=== PATIENT | female | born 1980 | race Two or more races ===

== ENCOUNTER 2023-06-16 11:08 | Observation (INO) | payer SELFPAY ==
--- NOTE | ~2023-06-16 | CT_ITS ---
EXAMINATION: CT head/brain wo IV con CLINICAL INFORMATION: Reason for Exam persistent nausea /vomiting -? central etiology COMPARISON: None. TECHNIQUE: Contiguous axial imaging was performed from the skull base to vertex without intravenous contrast. Sagittal and coronal reformatted images were obtained. This CT examination was performed using dose optimization techniques as appropriate, variously including the following: * Automated exposure control * Adjustment of mA and/or kV according to patient size (this includes techniques or standardized protocols for targeted exams where dose is matched to indication/reason for exam; i.e. extremities or head) Use of iterative reconstruction technique DLP: 565.78 mGy-cm FINDINGS: No acute osseous or soft tissue abnormality. The mastoid air cells and visualized portions of the paranasal sinuses are well aerated. There is no evidence of acute intracranial hemorrhage or territorial infarction. No abnormal mass effect or midline shift is seen. Andrade to white matter differentiation is well preserved. No extra-axial fluid collections are identified. No hydrocephalus. No significant volume loss. There is no abnormal attenuation within the brain parenchyma. CT/CT head/brain wo IV con IMPRESSION: No acute intracranial abnormality including hemorrhage, mass effect, hydrocephalus, or acute territorial edematous infarction.
--- NOTE | ~2023-06-16 | CT_ITS ---
EXAMINATION: CT ABDOMEN AND PELVIS WITH CONTRAST CLINICAL INFORMATION: Upper abdominal pain COMPARISON: None available. TECHNIQUE: Multidetector volumetric images were obtained from the superior aspect of the liver through the pubic symphysis following administration 85 mL of Omnipaque 350 intravenous contrast. Sagittal and coronal reformatted images were obtained on the technologist's workstation. Oral contrast: Yes This CT examination was performed using dose optimization techniques as appropriate, variously including the following: *Automated exposure control *Adjustment of mA and/or kV according to patient size (this includes techniques or standardized protocols for targeted exams where dose is matched to indication/reason for exam; i.e. extremities or head) *Use of iterative reconstruction technique DLP: 329 mGy-cm FINDINGS: LUNG BASES: The visualized lung bases are unremarkable. LIVER, GALLBLADDER, AND BILIARY TREE: The liver is normal in size, shape, and attenuation. No focal hepatic lesion or biliary ductal dilatation is present. The gallbladder is unremarkable with no evidence of radiopaque gallstones, gallbladder wall thickening, or obvious pericholecystic inflammatory changes. PANCREAS: There are calcifications in the head of the pancreas suggestive of changes from chronic pancreatitis. The main pancreatic duct is dilated measuring up to 7 mm in the head of the pancreas. The peripancreatic fat is normal. SPLEEN: Unremarkable. ADRENAL GLANDS: Unremarkable. KIDNEYS AND URETERS: Small nonobstructing stone in the upper pole of the right kidney. Kidneys are otherwise normal. BLADDER: Unremarkable. GASTROINTESTINAL TRACT: There is question of mild wall thickening of the transverse, left and sigmoid colon colon versus changes due to underdistention. The small and large bowel are otherwise unremarkable. The appendix is not seen. No inflammatory changes are seen in the right lower quadrant. ABDOMINAL WALL: No significant hernia is appreciated. LYMPH NODES: Normal. VASCULAR: Unremarkable. PELVIC VISCERA: Unremarkable. OSSEOUS STRUCTURES: Unremarkable. CT/CT abdomen pelvis w IV con IMPRESSION: Changes of chronic pancreatitis with calcifications in the head of the pancreas dilatation of the main pancreatic duct. No evidence of acute pancreatitis. Small nonobstructing right renal stone. Apparent wall thickening of the transverse, left and sigmoid colon.. This may be due to underdistention. It is difficult to exclude mild colitis. Fleischner guidelines were followed.
--- NOTE | ~2023-06-16 | CT_ITS ---
EXAMINATION: CT ABDOMEN AND PELVIS WITH CONTRAST CLINICAL INFORMATION: Question acute peripancreatic fluid collection COMPARISON: None available. TECHNIQUE: Multidetector volumetric images were obtained from the superior aspect of the liver through the pubic symphysis following administration 85 mL of Omnipaque 350 intravenous contrast. Sagittal and coronal reformatted images were obtained on the technologist's workstation. Oral contrast: No This CT examination was performed using dose optimization techniques as appropriate, variously including the following: *Automated exposure control *Adjustment of mA and/or kV according to patient size (this includes techniques or standardized protocols for targeted exams where dose is matched to indication/reason for exam; i.e. extremities or head) *Use of iterative reconstruction technique DLP: 353 mGy-cm FINDINGS: LUNG BASES: There is bibasilar atelectasis. LIVER, GALLBLADDER, AND BILIARY TREE: The liver is normal in size, shape, and attenuation. No focal hepatic lesion or biliary ductal dilatation is present. The gallbladder is unremarkable with no evidence of radiopaque gallstones, gallbladder wall thickening, or obvious pericholecystic inflammatory changes. PANCREAS: There are several small calcifications seen in the head of the pancreas largest measuring 6 mm on axial slice 22/2. There is dilatation of pancreatic duct likely partially obstructed from this calculi. The CBD is nondilated and normal caliber. No peripancreatic fluid collection seen. SPLEEN: Unremarkable. ADRENAL GLANDS: Unremarkable. KIDNEYS AND URETERS: The kidneys are normal in size, shape, and attenuation. No hydronephrosis, hydroureter, or calculi seen. No perinephric stranding. BLADDER: Unremarkable. GASTROINTESTINAL TRACT: The small and large bowel are unremarkable. The appendix is unremarkable. ABDOMINAL WALL: There is punctate gas in the left abdominal wall likely from subcutaneous is injection. LYMPH NODES: Normal. VASCULAR: Unremarkable. PELVIC VISCERA: The uterus is retroverted with slightly enlarged fundus but no focal lesion is seen. There is a left ovarian 3.0 cm simple cyst. OSSEOUS STRUCTURES: No aggressive lytic or sclerotic process seen CT/CT abdomen pelvis w IV con IMPRESSION: 1. No acute intra-abdominal process seen. 2. There are several small calcifications in the head of the pancreas with dilatation of pancreatic duct likely partially obstructed from this calculi. No peripancreatic fluid collection seen. After an outpatient MRCP. 3. Retroverted uterus with slightly enlarged fundus but no focal lesion seen. 4. Left ovarian 3.0 cm cyst. Fleischner guidelines were followed.
[2023-06-16 11:19] VITALS: BP 154/77; PULSE 70; RESP 16; TEMP 36.8; O2SAT 99; BMI 20.9
--- NOTE | 2023-06-16 11:19 | ED.GENADULT ---
HPI - General Adult General Chief complaint: Abdominal Pain Stated complaint: abd pain Time Seen by Provider: 06/16/23 12:14 Source: patient Mode of arrival: ambulatory Limitations: no limitations History of Present Illness HPI narrative: This is a 42-year-old female history of pancreatitis, alcohol abuse disorder, presenting to the emergency department for evaluation of epigastric/upper abdominal pain going on since last night, with associated nausea, vomiting and diarrhea. Patient reports this feels like her typical episode of pancreatitis. No known sick contacts. Patient reports subjective chills. Denies fevers, chest pain, shortness of breath, headache, vision changes, dizziness, weakness, urinary symptoms, changes in bowel habits. No history of obstructions. Patient reports last time this happened she was admitted to [facility]. Patient reports she was sober for a few years and recently relapsed she drinks about a pt of vodka per day, last drink of few days ago. Related Data Allergies Allergy/AdvReac Type Severity Reaction Status Date / Time acetaminophen [From Percocet] AdvReac Flushing Unverified 06/16/23 11:23 oxycodone AdvReac Flushing Unverified 06/16/23 11:23 Review of Systems Review of Systems: Constitutional : No Weight loss, No Fever, No Chills, No Fatigue, No Malaise ENT/Mouth : No sore throat, No Rhinorrhea Eyes: No Eye Pain, No Swelling, No Redness Cardiovascular : No Chest Pain, No SOB, No Dyspnea on Exertion, No Orthopnea, No Edema, No Palpitations Respiratory : No Cough, No Sputum, No Wheezing Gastrointestinal : + Nausea, + Vomiting, + Diarrhea, No Constipation, + abdominal Pain, No Hematochezia, No Melena Genitourinary : No Dysuria, No Urinary Frequency, No Hematuria, Musculoskeletal : No joint pain, No Myalgias, No Joint Swelling Skin : No Skin Lesions, No rash Neuro : No Weakness, No Numbness, No Dizziness, No Headache Psych : No Anxiety/Panic, No Depression All other systems reviewed and are negative Yes all other systems are reviewed and are negative [facility] Past Medical History Attestation statement: The following information was validated with the patient. Source: old records reviewed and nursing notes reviewed Social History Social History Alcohol intake: former Advance Directives: No Physical Exam ED Vital Signs: Vital Signs - 24 hr 06/16/23 11:19 06/16/23 13:02 06/16/23 14:39 Temperature 98.3 F 98.2 F 98.2 F Pulse Rate 70 60 65 Respiratory Rate 16 16 16 Blood Pressure 154/77 H 143/73 H 151/72 H Pulse Oximetry 99 100 100 Oxygen Delivery Method Room Air Room Air Room Air BMI result Body Mass Index 20.9 vss Appearance: Alert.? Oriented X3.? No acute distress.? Head: Normocephalic, atraumatic, no step-offs or deformities Eyes: Pupils equal, round and reactive to light.? ENT: Pharynx normal.? Neck: Normal inspection.? Neck supple.? CVS: Normal heart rate and rhythm.? Pulses normal.? Respiratory: No respiratory distress.? Breath sounds normal.? Abdomen: Soft and diffuse tenderness worse to upper abdomen.? Normal BS throughout Skin: Skin warm and dry.? Normal skin color.? Normal skin turgor.? Extremities: No lower extremity edema.? No calf ttp. 5/5 strength to bilateral upper and lower extremities Neuro: Oriented X 3.? No motor deficit.? No sensory deficit. CN 2-12 intact Course Course Course Narrative: This is a rapid medical exam: Additional HPI, ROS, PE not included below will be deferred to primary provider. Patient is a 42-year-old female with history of pancreatitis two weeks ago presenting to the emergency department with complaint of epigastric abdominal pain, nausea, vomiting, and diarrhea last night. States pain feels the same as prior pancreatitis. Was seen at [facility] for prior episode. Denies fevers or urinary symptoms. Plan: labs, UA Reevaluation(s) Reevaluation #1: CBC with leukocytosis likely reactive to nausea and vomiting. Chemistry no acute findings requiring intervention. Troponin negative, beta hCG negative. Lipase within normal limits. UA w/o infection Time: 13:48 Reevaluation #2: Obtain records from [facility] she had a similar presentation at that time. Her lipase was elevated at 425 on 05/29/2023. Time: 14:19 Reevaluation #3: Changes of chronic pancreatitis with calcifications and head of the pancreas dilation of main pancreatic duct, no evidence of acute pancreatitis. Small obstructing right renal stone. Apparent wall thickening of transverse left and sigmoid colon, likely secondary to mild colitis. Patient not tolerating p.o. still having nausea and vomiting. Will give Compazine at this time Time: 16:44 Medications Administered Discontinued Medications Generic Name Dose Route Start Last Admin Trade Name Mati PRN Reason Stop Dose Admin Diphenhydramine HCl 25 mg 06/16/23 15:59 06/16/23 16:11 Diphenhydramine Hcl 50 Mg/Ml Vial IVPUSH 06/16/23 16:00 25 mg ONCE ONE Administration Iohexol 85 ml 06/16/23 13:59 06/16/23 14:00 Iohexol 350 Mg/Ml 100 Ml Infus..Btl IV 06/16/23 14:00 85 ml ONCE ONE Administration Ketorolac Tromethamine 30 mg 06/16/23 13:38 06/16/23 13:43 Ketorolac Tromethamine 15 Mg/Ml Vial IVPUSH 06/16/23 13:39 30 mg ONCE ONE Administration Metoclopramide HCl 10 mg 06/16/23 15:59 06/16/23 16:12 Metoclopramide Hcl 10 Mg/2 Ml Vial IVPUSH 06/16/23 16:00 10 mg ONCE ONE Administration Morphine Sulfate 4 mg 06/16/23 15:59 06/16/23 16:08 Morphine Sulfate 4 Mg/Ml Cartridge IVPUSH 06/16/23 16:00 4 mg ONCE ONE Administration Protocol Ondansetron HCl 4 mg 06/16/23 13:38 06/16/23 13:44 Ondansetron Hcl 4 Mg/2 Ml Vial IVPUSH 06/16/23 13:39 4 mg ONCE ONE Administration Medical Decision Making Medical Decision Making [facility] Narrative: 1346 42-year-old female presents with nausea, vomiting, diarrhea, upper abdominal pain since last night. Unable to tolerate p.o. Physical exam significant for diffuse abdominal tenderness however worse the upper abdomen. Concerns for viral illness versus gastroenteritis versus pancreatitis. Unlikely acute abdomen, obstruction, cholecystitis, cholangitis, obstructing stone, diverticulitis, appendicitis. Unlikely dissection other differentials includes cyclical vomiting, alcohol w/ drawl Plan at this time labs, imaging, urine. Differential Diagnosis Differential Diagnoses: The differential diagnosis associated with the presentation includes Concerns for viral illness versus gastroenteritis versus pancreatitis. Unlikely acute abdomen, obstruction, cholecystitis, cholangitis, obstructing stone, diverticulitis, appendicitis. Unlikely dissection other differentials includes cyclical vomiting alcohol w/ drawl Admission/Observation Consideration of admission/observation: Escalation of care including admission/observation considered Possible Lab Data MDM Lab Attestation statement: I reviewed the patient's lab results. 06/16/23 11:50 06/16/23 11:50 Labs: Lab Results 06/16/23 06/16/23 06/16/23 Range/Units 11:38 11:48 11:50 WBC 13.0 H (4.8-10.8) X10*3/uL RBC 4.27 (4.20-5.50) X10*6/uL Hgb 13.3 (12.0-16.0) g/dl Hct 38.1 (37.0-47.0) % MCV 89.2 (80.0-98.0) fL MCH 31.1 (27.0-33.0) pg MCHC 34.9 (31.0-35.0) g/dl RDW 12.3 (11.0-16.0) % Plt Count 426 H (160-400) X10*3/uL MPV 10.3 (9.4-12.3) fL Immature Gran % (Auto) 0.5 H (0.0-0.4) % Neut % (Auto) 83.4 H (45-73) % Lymph % (Auto) 11.5 L (20-40) % Rains % (Auto) 4.1 (2-11) % Eos % (Auto) 0.2 (0-4) % Baso % (Auto) 0.3 (0-2) % Lymph # (Auto) 1.5 (1.2-4.9) X10*3/uL Rains # (Auto) 0.5 (0.1-1.2) X10*3/uL Eos # (Auto) 0.0 (0.0-0.4) X10*3/uL Baso # (Auto) 0.0 (0.0-0.2) X10*3/uL Abs Immat Gran (auto) 0.06 H (0.00-0.03) X10*3/uL Absolute Neuts (auto) 10.8 H (2.0-8.3) x10*3/uL Absolute Nucleated RBC 0.000 (0.0-0.012) X10*3/uL Nucleated RBC % (auto) 0.0 (0.0-0.2) /100WBC PT 10.5 L (11.1-13.3) SEC INR 0.9 (0.9-1.1) Sodium (135-145) mmol/L Potassium (3.3-5.1) mmol/L Chloride (96-108) mmol/L Carbon Dioxide (22-29) mmol/L Anion Gap (12-20) BUN (9-16) mg/dL Creatinine (0.5-1.4) mg/dL Estim Creat Clear Calc Estimated GFR Random Glucose (60-115) mg/dL Calcium (8.4-10.2) mg/dL Magnesium (1.6-2.6) mg/dL Total Bilirubin (0.0-1.0) mg/dL AST (5-31) U/L ALT (0-31) U/L Alkaline Phosphatase (39-117) U/L Troponin I High Sens (<3.5-17.0) ng/L Total Protein (6.5-8.0) g/dL Albumin (3.5-5.0) g/dL Lipase (8-78) U/L Beta HCG, Quant mIU/mL Urine Color Yellow Urine Appearance Clear Urine pH 6.5 (5.0-9.0) Ur Specific [place] 1.025 (1.005-1.025) Urine Protein Trace (Neg-Trace) mg/dL Urine Glucose (UA) Negative (Negative) mg/dL Urine Ketones Trace (Negative) mg/dL Urine Blood Trace H (Negative) Urine Nitrite Negative (Negative) Ur Leukocyte Esterase Negative (Negative) Urine RBC 3-5 H (0-2) /HPF Urine WBC 0-5 (0-5) /HPF Ur Squamous Epith Cells 6-10 (0-2) /HPF Urine Bacteria 1+ (None Seen) Hyaline Casts 0-2 (0-2) /LPF Ethyl Alcohol mg/dL 06/16/23 06/16/23 Range/Units 11:50 11:50 WBC (4.8-10.8) X10*3/uL RBC (4.20-5.50) X10*6/uL Hgb (12.0-16.0) g/dl Hct (37.0-47.0) % MCV (80.0-98.0) fL MCH (27.0-33.0) pg MCHC (31.0-35.0) g/dl RDW (11.0-16.0) % Plt Count (160-400) X10*3/uL MPV (9.4-12.3) fL Immature Gran % (Auto) (0.0-0.4) % Neut % (Auto) (45-73) % Lymph % (Auto) (20-40) % Rains % (Auto) (2-11) % Eos % (Auto) (0-4) % Baso % (Auto) (0-2) % Lymph # (Auto) (1.2-4.9) X10*3/uL Rains # (Auto) (0.1-1.2) X10*3/uL Eos # (Auto) (0.0-0.4) X10*3/uL Baso # (Auto) (0.0-0.2) X10*3/uL Abs Immat Gran (auto) (0.00-0.03) X10*3/uL Absolute Neuts (auto) (2.0-8.3) x10*3/uL Absolute Nucleated RBC (0.0-0.012) X10*3/uL Nucleated RBC % (auto) (0.0-0.2) /100WBC PT (11.1-13.3) SEC INR (0.9-1.1) Sodium 137 (135-145) mmol/L Potassium 3.8 (3.3-5.1) mmol/L Chloride 107 (96-108) mmol/L Carbon Dioxide 22 (22-29) mmol/L Anion Gap 12 (12-20) BUN 9 (9-16) mg/dL Creatinine 0.68 (0.5-1.4) mg/dL Estim Creat Clear Calc 82.1 Estimated GFR > 60 Random Glucose 127 H (60-115) mg/dL Calcium 9.5 (8.4-10.2) mg/dL Magnesium 1.8 (1.6-2.6) mg/dL Total Bilirubin 0.3 (0.0-1.0) mg/dL AST 17 (5-31) U/L ALT 8 (0-31) U/L Alkaline Phosphatase 65 (39-117) U/L Troponin I High Sens < 2.7 (<3.5-17.0) ng/L Total Protein 6.8 (6.5-8.0) g/dL Albumin 4.0 (3.5-5.0) g/dL Lipase 63 (8-78) U/L Beta HCG, Quant < 2 mIU/mL Urine Color Urine Appearance Urine pH (5.0-9.0) Ur Specific [place] (1.005-1.025) Urine Protein (Neg-Trace) mg/dL Urine Glucose (UA) (Negative) mg/dL Urine Ketones (Negative) mg/dL Urine Blood (Negative) Urine Nitrite (Negative) Ur Leukocyte Esterase (Negative) Urine RBC (0-2) /HPF Urine WBC (0-5) /HPF Ur Squamous Epith Cells (0-2) /HPF Urine Bacteria (None Seen) Hyaline Casts (0-2) /LPF Ethyl Alcohol < 10 mg/dL Independent Interpretation I performed an independent interpretation of an: CT Scan Radiology Impression Discussion of test interpretation with radiology: I have reviewed the radiologist's reading. External Record Review External record reviewed: Inpatient record, Office record, Outpatient record, Prior outpatient labs, Prior outpatient radiology, Primary care record and Outside ED record Core Measures AMI core measures followed: Yes Measure exclusions: not indicated Critical Care Time Critical Care Time Critical Care Time: No Discharge Plan Discharge Clinical Impression: Abdominal pain, Nausea & vomiting, Colitis Patient Disposition: Still a Patient
--- NOTE | 2023-06-16 11:23 | ECG_ITS ---
Test Reason : abdominal pain Blood Pressure : / mmHG Vent. Rate : 067 BPM Atrial Rate : 067 BPM P-R Int : 156 ms QRS Dur : 080 ms QT Int : 432 ms P-R-T Axes : 035 059 040 degrees QTc Int : 456 ms Normal sinus rhythm with sinus arrhythmia Normal ECG No previous ECGs available Referred By: Lisa Stephens Electronically Signed By:KINZA CHARLES
[2023-06-16 11:54] LABS: MANUAL DIFF FLAG NO
[2023-06-16 11:56] LABS: Basophils Percent Auto 0.3 % (0-2); Eosinophils Percent Auto 0.2 % (0-4); Hematocrit 38.1 % (37.0-47.0); Hemoglobin 13.3 g/dl (12.0-16.0); Imm Gran Abs Auto 0.06 X10*3/uL (0.00-0.03); Imm Gran Pct Auto 0.5 % (0.0-0.4); Lymphocytes Absolute Auto 1.5 X10*3/uL (1.2-4.9); Lymphocytes Percent Auto 11.5 % (20-40); Mean Corpuscular HGB Conc 34.9 g/dl (31.0-35.0); Mean Corpuscular Hemoglobin 31.1 pg (27.0-33.0); Mean Corpuscular Volume 89.2 fL (80.0-98.0); Mean Platelet Volume 10.3 fL (9.4-12.3); Monocytes Absolute Auto 0.5 X10*3/uL (0.1-1.2); Monocytes Percent Auto 4.1 % (2-11); Neutrophils Absolute Auto 10.8 x10*3/uL (2.0-8.3); Neutrophils Percent Auto 83.4 % (45-73); Platelet Count 426 X10*3/uL (160-400); Red Blood Count 4.27 X10*6/uL (4.20-5.50); Red Cell Distribution Width 12.3 % (11.0-16.0)
[2023-06-16 11:57] LABS: Appearance Urine Clear; Color Urine Yellow; Glucose Urine UA Negative (Negative); Leukocyte Esterase Urine Negative (Negative); Nitrite Urine Negative (Negative); PH 6.5 (5.0-9.0); Specific Gravity - Urine 1.025 (1.005-1.025); UMIC TRIGGER UACC YES; Urine Blood Trace (Negative); Urine Ketones Trace mg/dL (Negative); Urine Protein Trace mg/dL (Neg-Trace)
[2023-06-16 11:59] LABS: Bacteria Urine 1+ (None Seen); Hyaline Casts Urine 0-2 /LPF (0-2); WBC Urine 0-5 /HPF (0-5)
[2023-06-16 12:04] LABS: INTERNATIONAL NORM RATIO 0.9 (0.9-1.1); Prothrombin Time 10.5 SEC (11.1-13.3)
--- NOTE | 2023-06-16 12:18 | PC.NURSE ---
pt aox4, co bilat UQ pain since 5am this morning. pain came on suddenly with N/V/D. hx pancriatitis 2 weeks ago. labs drawn in triage, EKG done. IV inserted 20g left ac. pt in 07/22 pain. MD orders pending. will ctm
[2023-06-16 12:28] LABS: Alanine Aminotransferase 8 U/L (0-31); Alkaline Phosphatase 65 U/L (39-117); Anion Gap 12 (12-20); Aspartate Amino Transferase 17 U/L (5-31); Bilirubin Total 0.3 mg/dL (0.0-1.0); Blood Urea Nitrogen 9 mg/dL (9-16); Calcium 9.5 mg/dL (8.4-10.2); Carbon Dioxide 22 mmol/L (22-29); Chloride 107 mmol/L (96-108); Creatinine Clr Calc Pharmacy 82.1; Estimated Glomerular Filt Rate > 60; Glucose Random 127 mg/dL (60-115); Lipase 63 U/L (8-78); Magnesium 1.8 mg/dL (1.6-2.6); Potassium 3.8 mmol/L (3.3-5.1); Sodium 137 mmol/L (135-145); Total Protein 6.8 g/dL (6.5-8.0)
[2023-06-16 12:29] LABS: HCG Quantitative < 2 mIU/mL; Troponin-I High Sensitivity < 2.7 ng/L (<3.5-17.0)
[2023-06-16 13:02] VITALS: BP 143/73; PULSE 60; RESP 16; TEMP 36.8; O2SAT 100
[2023-06-16] MEDS: Ketorolac Tromethamine 15 MG/ML VIAL 30 MG IVPUSH (13:43)
[2023-06-16] MEDS: ondansetron HCL 4 MG/2 ML VIAL IVPUSH (13:44)
[2023-06-16] MEDS: iohexoL 350 MG/ML 100 ML INFUS..BTL 85 ML IV (14:00)
[2023-06-16 14:36] LABS: Ethanol < 10 mg/dL
[2023-06-16 14:39] VITALS: BP 151/72; PULSE 65; RESP 16; TEMP 36.8; O2SAT 100
[2023-06-16] MEDS: Morphine Sulfate 4 MG/ML CARTRIDGE IVPUSH (16:08)
[2023-06-16] MEDS: diphenhydrAMINE HCL 50 MG/ML VIAL 25 MG IVPUSH (16:11)
[2023-06-16] MEDS: Metoclopramide HCl 10 MG/2 ML VIAL IVPUSH (16:12)
--- NOTE | 2023-06-16 17:03 | PC.NURSE ---
pt continues to be in pain, reporting 8/10 pain and nausea, medicated per Dec. will ctm
[2023-06-16] MEDS: 0.9 % Sodium Chloride 1,000 ML 999 ML IV (17:14)
[2023-06-16] MEDS: Prochlorperazine Edisylate 10 MG/2 ML VIAL 5 MG IVPUSH (17:14)
--- NOTE | 2023-06-16 17:24 | PC.NURSE ---
levoquin not started- hold per hospitalist
[2023-06-16 18:01] VITALS: BP 143/71; PULSE 62; RESP 18; TEMP 37; O2SAT 100
--- NOTE | 2023-06-16 18:03 | P.HPHOSP_ITS ---
History of Present Illness Date of Service: 06/16/23 Attending physician on admission: Dae Gallo Chief Complaint: Abdominal pain, nausea, vomiting 42-year-old female with history alcohol abuse, hypothyroidism, chronic pancreatitis, moderate persistent asthma presents to the ED earlier today for evaluation of severe epigastric pain radiating around the left side with intractable nausea and vomiting. She reports she was hospitalized from 05/29- 06/06 for acute pancreatitis and managed for alcohol withdrawal at [facility] in. She states she had been abstaining from alcohol before days ago had 2 shots of hard liquor. She awoke in the middle of the night last night with severe epigastric pain as well as nausea and vomiting. She has been unable to tolerate solids or fluids. She states she had thought she was constipated so had been taking milk of magnesia and had a single episode of diarrhea this morning without any recurrence. No fevers, chills, hematemesis, melena, hematochezia.. She denies any illicit drug use but does smoke marijuana and cigarettes occasionally. She states she does have an appointment at [facility] on 06/20 per the patient. On arrival, vital signs stable. There is a mild leukocytosis of 13.0. Renal function normal, electrolyte levels normal, hepatic function normal. Lipase 63. Urinalysis unremarkable. Ethyl alcohol level undetectable. CT abdomen/pelvis shows changes of chronic pancreatitis with calcifications in the head of the pancreas and dilatation of the main pancreatic duct but no evidence of acute pancreatitis. There is also apparent wall thickening of the transverse, left, sigmoid colon which may be due to under distension though difficult to exclude mild colitis. In the ED has received 10 mg Reglan, 4 mg IV morphine, 1 L IV NS, 5 mg Compazine, 25 mg Benadryl, 4 mg ondansetron, and IV ketorolac. Review of Systems Review of Systems: General: No fevers, malaise, unintentional weight loss HEENT: No blurred vision, diplopia. No sore throat, nasal congestion, rhinorrhea, sinus pain, ear pain Cardiovascular: No chest pain, palpitations, or leg edema Respiratory: No shortness of breath, wheezing, cough GI: +abd pain, +n/v, +diarrhea. No constipation, melena, hematochezia : No dysuria, hematuria, increased urinary frequency, decreased urinary output MSK: No myalgia, back pain Neuro: No headaches, weakness, paresthesias Skin: No rashes or lesions PMFSH Medical History Alcohol use disorder Asthma Chronic pancreatitis Hypothyroidism Social History Alcohol intake: former Advance Directives: No Meds Allergies Allergy/AdvReac Type Severity Reaction Status Date / Time acetaminophen [From Percocet] AdvReac Flushing Unverified 06/16/23 11:23 oxycodone AdvReac Flushing Unverified 06/16/23 11:23 Active Medications: Current Medications Acetaminophen (Acetaminophen 325 Mg Tablet) 650 mg PO Q6H PRN PRN Reason: Pain, Mild (Pain Scale 1-3) Docusate Sodium (Docusate Sodium 100 Mg Capsule) 100 mg PO DAILY PRN PRN Reason: Constipation Enoxaparin Sodium (Enoxaparin Sodium 40 Mg/0.4 Ml Syringe) 40 mg SUBCUT Q24H FELICE Ondansetron HCl (Ondansetron Hcl 4 Mg/2 Ml Vial) 4 mg IVPUSH Q8H PRN PRN Reason: Nausea and Vomiting Sodium Chloride (0.9 % Sodium Chloride Flush 3 Ml Syringe) 3 ml IVFLUSH QSHIFT FELICE Home Medications Medication Instructions Recorded Confirmed Last Taken Type acetaminophen 325 mg tablet 650 mg PO Q4H PRN mild pain 06/16/23 Unknown History albuterol sulfate 90 mcg/actuation 2 puff inhalation Q4H PRN Wheezing 06/16/23 Unknown History aerosol inhaler (Ventolin HFA) budesonide-formoterol HFA 80 2 puff inhalation BID 06/16/23 Unknown History mcg-4.5 mcg/actuation aerosol inhaler (Symbicort) clonidine HCl 0.1 mg tablet 0.1 mg PO BID PRN Anxiety 06/16/23 Unknown History folic acid 1 mg tablet 1 mg PO DAILY 06/16/23 Unknown History levothyroxine 125 mcg tablet 125 mcg PO DAILY 06/16/23 Unknown History morphine 15 mg immediate release 15 mg PO Q8H PRN severe pain 06/16/23 Unknown History tablet multivitamin with folic acid 400 1 tab PO DAILY 06/16/23 Unknown History mcg tablet (Daily-Preston (with folic acid)) nicotine 14 mg/24 hr daily 1 patch topical DAILY 06/16/23 Unknown History transdermal patch ondansetron 4 mg disintegrating 4 mg PO Q8H PRN Nausea 06/16/23 Unknown History tablet thiamine HCl (vitamin B1) 100 mg 100 mg PO DAILY 06/16/23 Unknown History tablet Physical Exam Vital Signs and Narrative: Vital Signs: Last Vital Signs Temp 98.6 F 06/16/23 18:01 Pulse 62 06/16/23 18:01 Resp 18 06/16/23 18:01 BP 143/71 H 06/16/23 18:01 Pulse Ox 100 06/16/23 18:01 O2 Del Method Room Air 06/16/23 18:01 BMI result Body Mass Index 20.9 Constitutional - Awake and Alert, No apparent distress Eyes - PERRLA, EOMI Cardiovascular - S1S2, RRR, No edema Respiratory - Normal lung expansion, Normal respiratory effort, No respiratory distress, CTA bilaterally Gastrointestinal - moderate epigastric and LUQ ttp, ND; +BS; No rebound or guarding Extremities - no calf tenderness bilaterally, no swelling Skin - Warm/Dry Neurological - Alert & oriented x3 Psychological - Appropriate affect Results Labs 06/16/23 11:50 06/16/23 11:50 Labs: Laboratory Results - last 24 hr 06/16/23 06/16/23 06/16/23 11:38 11:48 11:50 MCV 89.2 MCH 31.1 MCHC 34.9 RDW 12.3 Plt Count 426 H MPV 10.3 Immature Gran % (Auto) 0.5 H Neut % (Auto) 83.4 H Lymph % (Auto) 11.5 L [place] % (Auto) 4.1 Eos % (Auto) 0.2 Baso % (Auto) 0.3 Lymph # (Auto) 1.5 [place] # (Auto) 0.5 Eos # (Auto) 0.0 Baso # (Auto) 0.0 Abs Immat Gran (auto) 0.06 H Absolute Neuts (auto) 10.8 H Absolute Nucleated RBC 0.000 Nucleated RBC % (auto) 0.0 PT 10.5 L INR 0.9 Anion Gap Estim Creat Clear Calc Estimated GFR Random Glucose Calcium Magnesium Total Bilirubin AST ALT Alkaline Phosphatase Total Protein Albumin Lipase Beta HCG, Quant Urine Color Yellow Urine Appearance Clear Urine pH 6.5 Ur Specific [place] 1.025 Urine Protein Trace Urine Glucose (UA) Negative Urine Ketones Trace Urine Blood Trace H Urine Nitrite Negative Ur Leukocyte Esterase Negative Urine RBC 3-5 H Urine WBC 0-5 Ur Squamous Epith Cells 6-10 Urine Bacteria 1+ Hyaline Casts 0-2 Ethyl Alcohol 06/16/23 11:50 MCV MCH MCHC RDW Plt Count MPV Immature Gran % (Auto) Neut % (Auto) Lymph % (Auto) [place] % (Auto) Eos % (Auto) Baso % (Auto) Lymph # (Auto) [place] # (Auto) Eos # (Auto) Baso # (Auto) Abs Immat Gran (auto) Absolute Neuts (auto) Absolute Nucleated RBC Nucleated RBC % (auto) PT INR Anion Gap 12 Estim Creat Clear Calc 82.1 Estimated GFR > 60 Random Glucose 127 H Calcium 9.5 Magnesium 1.8 Total Bilirubin 0.3 AST 17 ALT 8 Alkaline Phosphatase 65 Total Protein 6.8 Albumin 4.0 Lipase 63 Beta HCG, Quant < 2 Urine Color Urine Appearance Urine pH Ur Specific [place] Urine Protein Urine Glucose (UA) Urine Ketones Urine Blood Urine Nitrite Ur Leukocyte Esterase Urine RBC Urine WBC Ur Squamous Epith Cells Urine Bacteria Hyaline Casts Ethyl Alcohol < 10 Imaging Radiologist's Impressions: Impressions Abdomen/Pelvis CT 06/16/23 14:04 IMPRESSION: Changes of chronic pancreatitis with calcifications in the head of the pancreas dilatation of the main pancreatic duct. No evidence of acute pancreatitis. Small nonobstructing right renal stone. Apparent wall thickening of the transverse, left and sigmoid colon.. This may be due to underdistention. It is difficult to exclude mild colitis. Fleischner guidelines were followed. Assessment and Plan (1) Abdominal pain: Status: Acute (2) Nausea & vomiting: Status: Acute Plan 42-year-old female with history alcohol abuse, hypothyroidism, chronic pancreatitis, moderate persistent asthma to be observed for intractable nausea/vomiting with poor po intake. # severe epigastric pain with intractable nausea and vomiting -lipase WNL, CT without evidence of acute pancreatitis but showing chronic changes of pancreatitis -suspect clinical alcoholic pancreatitis versus alcoholic gastritis -clear liquid diet, advanced as tolerated -aggressive IV fluids -antiemetics p.r.n. -pain management using pain scale # acute leukocytosis -likely reactive in setting of intractable vomiting -CT with possible mild colitis versus under distention of colon. Low suspicion for infectious colitis -follow CBC # hypothyroidism -continue Synthroid # alcohol use disorder -declines consult to Addiction Medicine. Will follow-up with me wrist as felice eduled -continue thiamine, folic acid -outside window for withdrawal # moderate persistent asthma -no acute exacerbation -continue maintenance inhalers, albuterol p.r.n. DVT prophylaxis-Lovenox Full code Time Spent With Patient Time: Total time managing care of this patient today ____ minutes. Quality Stroke Does the patient have a stroke diagnosis?: No VTE Prior VTE?: No VTE Risk Level:: Medical - moderate - high VTE Device Contraindication: Treatment Not Indicated VTE Drug Contraindication: N/A - Med Ordered
--- NOTE | 2023-06-16 18:32 | PHA.MEDREC ---
Pharmacy Consult ? Medication Reconciliation Pharmacy has completed the medication reconciliation. Patient confirmed medications. Jessika Chou, KayodeD
[2023-06-16] MEDS: Enoxaparin Sodium 40 MG/0.4 ML SYRINGE SUBCUT (19:34)
[2023-06-16] MEDS: Lactated Ringers 1,000 ML 125 ML IVCONT (19:34)
[2023-06-16] MEDS: Morphine Sulfate 2 MG/ML CARTRIDGE IVPUSH (20:09)
[2023-06-16] MEDS: traZODone HCL 50 MG TABLET PO (20:21)
[2023-06-16 20:22] VITALS: BP 158/81; PULSE 64; RESP 18; TEMP 36.9; O2SAT 98
[2023-06-16 23:36] VITALS: BP 160/86; PULSE 66; RESP 16; TEMP 36.3; O2SAT 99
[2023-06-17] MEDS: Morphine Sulfate 2 MG/ML CARTRIDGE IVPUSH ×6 (00:54→20:03)
[2023-06-17] MEDS: Lactated Ringers 1,000 ML 125 ML IVCONT ×3 (03:44→20:07)
[2023-06-17] MEDS: ondansetron HCL 4 MG/2 ML VIAL IVPUSH ×2 (05:24→12:57)
[2023-06-17] MEDS: Levothyroxine Sodium 125 MCG TABLET PO (05:28)
[2023-06-17 06:12] LABS: MANUAL DIFF FLAG NO
[2023-06-17 06:14] LABS: Basophils Percent Auto 0.2 % (0-2); Eosinophils Percent Auto 0.2 % (0-4); Hematocrit 34.5 % (37.0-47.0); Hemoglobin 12.1 g/dl (12.0-16.0); Imm Gran Abs Auto 0.04 X10*3/uL (0.00-0.03); Imm Gran Pct Auto 0.3 % (0.0-0.4); Lymphocytes Absolute Auto 1.8 X10*3/uL (1.2-4.9); Mean Corpuscular HGB Conc 35.1 g/dl (31.0-35.0); Mean Corpuscular Hemoglobin 31.3 pg (27.0-33.0); Mean Corpuscular Volume 89.1 fL (80.0-98.0); Mean Platelet Volume 11.4 fL (9.4-12.3); Monocytes Absolute Auto 0.7 X10*3/uL (0.1-1.2); Monocytes Percent Auto 5.4 % (2-11); Neutrophils Absolute Auto 10.3 x10*3/uL (2.0-8.3); Neutrophils Percent Auto 79.9 % (45-73); Platelet Count 360 X10*3/uL (160-400); Red Blood Count 3.87 X10*6/uL (4.20-5.50); Red Cell Distribution Width 12.1 % (11.0-16.0); White Blood Count 12.9 X10*3/uL (4.8-10.8)
[2023-06-17 06:37] LABS: Anion Gap 9 (12-20); Blood Urea Nitrogen 5 mg/dL (9-16); Calcium 8.9 mg/dL (8.4-10.2); Carbon Dioxide 23 mmol/L (22-29); Chloride 105 mmol/L (96-108); Creatinine Clr Calc Pharmacy 107.4; Estimated Glomerular Filt Rate > 60; Glucose Random 87 mg/dL (60-115); Potassium 3.4 mmol/L (3.3-5.1); Sodium 134 mmol/L (135-145)
[2023-06-17 07:52] VITALS: BP 149/85; PULSE 66; RESP 17; TEMP 36.6; O2SAT 98
[2023-06-17] MEDS: Fluticasone/Vilanterol 100/25 BLST.W.DEV 1 PUFF INHALE (08:31)
[2023-06-17 08:33] VITALS: PULSE 62; RESP 16; O2SAT 98
[2023-06-17] MEDS: Multivitamin TABLET 1 TAB PO (09:05)
--- NOTE | 2023-06-17 10:50 | MHC.CM.PN ---
ALESSIA 06/17/23 DX Epigatric pain N/V+ Patient lives by herself. She is independent with all functional mobility. A copy of her HCP has been requested. She has been seen by the recovery nurse. Patient states that she will receive out patient services for ETOH @ [facility] when discharged. DP home self care. Patient will arrange for transport home. Out [facility].
--- NOTE | 2023-06-17 12:07 | P.PNIM_ITS ---
Subjective Subjective Date of Service: 06/17/23 Interval History: ?severe epigastric pain? Review of Systems abd pain similar to yesterday still feels nauseated no fevers or diarrhae Physical Exam Vital Signs: Vital Signs: Last Vital Signs Temp 97.8 F 06/17/23 07:52 Pulse 62 06/17/23 08:33 Resp 16 06/17/23 08:33 BP 149/85 H 06/17/23 07:52 Pulse Ox 98 06/17/23 07:52 O2 Del Method Room Air 06/17/23 07:52 BMI result Body Mass Index 20.9 Appearance: Alert.? Oriented X3.? not in distress.? cvs: rrr, [id number] , no murmur res: clear to auscultation ,no rhonchii or wheezing abd: no rebound or guardin, moderate epigastric/llq , bs present. ext pulses present , no cyanosis . neuro: axo3 , nonfocal. Objective Data Active Medications Acetaminophen (Acetaminophen 325 Mg Tablet) 650 mg PO Q6H PRN PRN Reason: Pain, Mild (Pain Scale 1-3) Albuterol Sulfate (Albuterol Sulfate 90 Mcg 8 Gm Inhaler) 2 puff INHALE Q4H PRN PRN Reason: Wheezing Docusate Sodium (Docusate Sodium 100 Mg Capsule) 100 mg PO DAILY PRN PRN Reason: Constipation Enoxaparin Sodium (Enoxaparin Sodium 40 Mg/0.4 Ml Syringe) 40 mg SUBCUT Q24H [facility] Last Admin: 06/16/23 19:34 Dose: 40 mg Documented By: CINTHYA Fluticasone/Vilanterol (Fluticasone/Vilanterol 100/25 Blst.W.Dev) 1 puff INHALE RDAILY [facility] Last Admin: 06/17/23 08:31 Dose: 1 puff Documented By: DAVID Lactated Ringer's (Lr) 1,000 mls @ 125 mls/hr IVCONT .Q8H [facility] Last Admin: 06/17/23 03:44 Dose: 125 mls/hr Documented By: ALEX Levothyroxine Sodium (Levothyroxine Sodium 125 Mcg Tablet) 125 mcg PO DAILY@0600 [facility] Last Admin: 06/17/23 05:28 Dose: 125 mcg Documented By: ALEX Morphine Sulfate (Morphine Sulfate 2 Mg/Ml Cartridge) 2 mg IVPUSH Q4H PRN; Protocol PRN Reason: Pain, Severe (Pain Scale 7-10) Last Admin: 06/17/23 09:03 Dose: 2 mg Documented By: GUERA Multivitamins/Vitamin C (Multivitamin Tablet) 1 tab PO DAILY [facility] Last Admin: 06/17/23 09:05 Dose: 1 tab Documented By: GUERA Ondansetron HCl (Ondansetron Hcl 4 Mg/2 Ml Vial) 4 mg IVPUSH Q8H PRN PRN Reason: Nausea and Vomiting Last Admin: 06/17/23 05:24 Dose: 4 mg Documented By: ALEX Oxycodone HCl (Oxycodone Hcl Immed Release 5 Mg Tablet) 5 mg PO Q6H PRN PRN Reason: Pain, Moderate(Pain Scale 4-6) Sodium Chloride (0.9 % Sodium Chloride Flush 3 Ml Syringe) 3 ml IVFLUSH QSHIFT [facility] Last Admin: 06/17/23 09:05 Dose: Not Given Documented By: GUERA Non-Admin Reason: IV Running Trazodone HCl (Trazodone Hcl 50 Mg Tablet) 50 mg PO BEDTIME PRN PRN Reason: Insomnia Last Admin: 06/16/23 20:21 Dose: 50 mg Documented By: ALEX Labs 06/17/23 05:03 06/17/23 05:03 Labs: Laboratory Results - last 24 hr 06/16/23 06/17/23 06/17/23 11:50 05:03 05:03 MCV 89.1 MCH 31.3 MCHC 35.1 H RDW 12.1 Plt Count 360 MPV 11.4 Immature Gran % (Auto) 0.3 Neut % (Auto) 79.9 H Lymph % (Auto) 14.0 L [place] % (Auto) 5.4 Eos % (Auto) 0.2 Baso % (Auto) 0.2 Lymph # (Auto) 1.8 [place] # (Auto) 0.7 Eos # (Auto) 0.0 Baso # (Auto) 0.0 Abs Immat Gran (auto) 0.04 H Absolute Neuts (auto) 10.3 H Absolute Nucleated RBC 0.000 Nucleated RBC % (auto) 0.0 Anion Gap 12 9 L Estim Creat Clear Calc 82.1 107.4 Estimated GFR > 60 > 60 Random Glucose 127 H 87 Calcium 9.5 8.9 D Magnesium 1.8 Total Bilirubin 0.3 AST 17 ALT 8 Alkaline Phosphatase 65 Total Protein 6.8 Albumin 4.0 Lipase 63 Beta HCG, Quant < 2 Ethyl Alcohol < 10 Assessment and Plan (1) Abdominal pain: Status: Acute (2) Nausea & vomiting: Status: Acute Plan 42-year-old female with history alcohol abuse, hypothyroidism, chronic pancreatitis, moderate persistent asthma to be observed for intractable nausea/vomiting with poor po intake. severe epigastric pain with intractable nausea and vomiting -lipase WNL, CT without evidence of acute pancreatitis but showing chronic changes of pancreatitis -suspect clinical alcoholic pancreatitis versus alcoholic gastritis urine drug screen -clear liquid diet, advanced as tolerated -aggressive IV fluids -antiemetics p.r.n. -pain management using pain scale acute leukocytosis -likely reactive in setting of intractable vomiting -CT with possible mild colitis versus under distention of colon.? Low suspicion for infectious colitis no fever or diarrhae will add stool studies -follow CBC hypothyroidism -continue Synthroid alcohol use disorder -declines consult to Addiction Medicine.? Will follow-up with me wrist as scheduled -continue thiamine, folic acid -outside window for withdrawal moderate persistent asthma -no acute exacerbation -continue maintenance inhalers, albuterol p.r.n. DVT prophylaxis-Lovenox Full code inpatient need :severe epigastric pain with intractable nausea and vomiting-need iv hydration/antiemtics ,ppi Time Spent With Patient Time: Total time managing care of this patient today ____ minutes. Quality Stroke Does the patient have a stroke diagnosis?: No VTE Prior VTE?: No VTE Risk Level:: Medical - moderate - high VTE Device Contraindication: Treatment Not Indicated VTE Drug Contraindication: N/A - Med Ordered
[2023-06-17 15:06] VITALS: BP 156/85; PULSE 47; RESP 18; TEMP 36.6; O2SAT 99
[2023-06-17] MEDS: traZODone HCL 50 MG TABLET PO (20:03)
[2023-06-17 20:53] LABS: Amphetamine Screen Urine Not Detected (Not Detect); Barbiturates, Urine Not Detected (Not Detect); Benzodiazepines Screen Urine Not Detected (Not Detect); Cannabinoid Screen Urine Not Detected (Not Detect); Cocaine Screen Urine Not Detected (Not Detect); Fentanyl, urine Not Detected (Not Detect); Opiate Screen Urine POSITIVE (Not Detect); Phencyclidine Screen Urine Not Detected (Not Detect)
[2023-06-18] VITALS: BP 156/78; PULSE 61; RESP 16; TEMP 36.3; O2SAT 99
[2023-06-18] MEDS: Morphine Sulfate 2 MG/ML CARTRIDGE IVPUSH ×6 (00:10→20:34)
[2023-06-18] MEDS: Lactated Ringers 1,000 ML 125 ML IVCONT ×2 (01:30→11:50)
[2023-06-18] MEDS: ondansetron HCL 4 MG/2 ML VIAL IVPUSH ×2 (05:05→16:11)
[2023-06-18] MEDS: Levothyroxine Sodium 125 MCG TABLET PO (05:08)
[2023-06-18 07:41] VITALS: BP 163/91; PULSE 60; RESP 16; TEMP 36.5; O2SAT 99
[2023-06-18] MEDS: Fluticasone/Vilanterol 100/25 BLST.W.DEV 1 PUFF INHALE (07:59)
[2023-06-18 08:01] VITALS: PULSE 64; RESP 16; O2SAT 98
[2023-06-18] MEDS: Metoclopramide HCl 5 MG TABLET PO ×2 (08:30→16:23)
[2023-06-18] MEDS: Pantoprazole Sodium 40 MG/10 ML VIAL IVPUSH ×2 (08:30→16:11)
--- NOTE | 2023-06-18 10:53 | P.CNGI_ITS ---
History of Present Illness Data of Consult Service Date: 06/18/23 Requesting physician: Chana Scruggs Primary Care Provider: Unknown Physician HPI Reason for consult: Intractable N/V This is a 42y.o F with PMH of etOH use disorder with recent admission for AIP at [facility] who is here for abd pain, N,V. History was obtained from the pt who states that she was recently admitted to [facility] last month for pancreatitis secondary to alcohol use. Was discharged after the pain was better and she is able to tolerate p.o. Few days before admission, she had a few hard liquor drinks and within 2 days developed epigastric pain and nausea followed by multiple episodes of vomiting. She then came to the emergency room she was not able to tolerate anything p.o.. Had emesis up to 4 to 5 times a day. She notes that pain is DIFFERENT from her recent pancreatitis and more diffuse this time. Similarly, N/V got better within 2 days last admission however this time around continues to have at least 3-4 episodes of vomiting despite being 4 days out from initial onset of symptoms. Has barely been tolerating clear liquids sips. No fevers, chills. No new meds recently. No NSAID use. Labs and imaging reviewed - has stigmata of chronic panc on CT. No evidence of GOO or SBO. Of note - urine tox positive for opiate however this was obtained AFTER pt got morphine in ER. Pt does not report opiate abuse. Review of Systems 2 Review of Systems: Yes all other systems are reviewed and are negative PMFSH Past Medical History Medical History Alcohol use disorder Asthma Chronic pancreatitis Hypothyroidism Social History Social History Alcohol intake: former Patient Tobacco Use Status: Never used Tobacco service: No Meds Allergies Allergy/AdvReac Type Severity Reaction Status Date / Time oxycodone AdvReac [place] Verified 06/16/23 20:25 Active Medications: Current Medications Acetaminophen (Acetaminophen 325 Mg Tablet) 650 mg PO Q6H PRN PRN Reason: Pain, Mild (Pain Scale 1-3) Albuterol Sulfate (Albuterol Sulfate 90 Mcg 8 Gm Inhaler) 2 puff INHALE Q4H PRN PRN Reason: Wheezing Docusate Sodium (Docusate Sodium 100 Mg Capsule) 100 mg PO DAILY PRN PRN Reason: Constipation Enoxaparin Sodium (Enoxaparin Sodium 40 Mg/0.4 Ml Syringe) 40 mg SUBCUT Q24H [facility] Last Admin: 06/17/23 19:43 Dose: Not Given Fluticasone/Vilanterol (Fluticasone/Vilanterol 100/25 Blst.W.Dev) 1 puff INHALE RDAILY [facility] Last Admin: 06/18/23 07:59 Dose: 1 puff Lactated Ringer's (Lr) 1,000 mls @ 80 mls/hr IVCONT .[id number] [facility] Last Admin: 06/18/23 01:30 Dose: 125 mls/hr Levothyroxine Sodium (Levothyroxine Sodium 125 Mcg Tablet) 125 mcg PO DAILY@0600 [facility] Last Admin: 06/18/23 05:08 Dose: 125 mcg Morphine Sulfate (Morphine Sulfate 2 Mg/Ml Cartridge) 2 mg IVPUSH Q4H PRN; Protocol PRN Reason: Pain, Severe (Pain Scale 7-10) Last Admin: 06/18/23 08:30 Dose: 2 mg Multivitamins/Vitamin C (Multivitamin Tablet) 1 tab PO DAILY [facility] Last Admin: 06/18/23 10:52 Dose: Not Given Ondansetron HCl (Ondansetron Hcl 4 Mg/2 Ml Vial) 4 mg IVPUSH Q8H PRN PRN Reason: Nausea and Vomiting Last Admin: 06/18/23 05:05 Dose: 4 mg Oxycodone HCl (Oxycodone Hcl Immed Release 5 Mg Tablet) 5 mg PO Q6H PRN PRN Reason: Pain, Moderate(Pain Scale 4-6) Pantoprazole Sodium (Pantoprazole Sodium 40 Mg/10 Ml Vial) 40 mg IVPUSH BID@0630,1630 [facility] Last Admin: 06/18/23 08:30 Dose: 40 mg Sodium Chloride (0.9 % Sodium Chloride Flush 3 Ml Syringe) 3 ml IVFLUSH QSHIFT [facility] Last Admin: 06/18/23 08:31 Dose: Not Given Trazodone HCl (Trazodone Hcl 50 Mg Tablet) 50 mg PO BEDTIME PRN PRN Reason: Insomnia Last Admin: 06/17/23 20:03 Dose: 50 mg Home Medications Medication Instructions Recorded Confirmed Last Taken Type acetaminophen 325 mg tablet 650 mg PO Q4H PRN mild pain 06/16/23 06/16/23 Unknown History albuterol sulfate 90 mcg/actuation 2 puff inhalation Q4H PRN Wheezing 06/16/23 06/16/23 Unknown History aerosol inhaler (Ventolin HFA) budesonide-formoterol HFA 80 2 puff inhalation BID 06/16/23 06/16/23 Unknown History mcg-4.5 mcg/actuation aerosol inhaler (Symbicort) levothyroxine 125 mcg tablet 125 mcg PO DAILY 06/16/23 06/16/23 Unknown History multivitamin with folic acid 400 1 tab PO DAILY 06/16/23 06/16/23 Unknown History mcg tablet (Daily-Preston (with folic acid)) ondansetron 4 mg disintegrating 4 mg PO Q8H PRN Nausea 06/16/23 06/16/23 Unknown History tablet trazodone 50 mg tablet 50 mg PO BEDTIME PRN Insomnia 06/16/23 06/16/23 Unknown History Physical Exam 2 Vital Signs: Vital Signs: Last Vital Signs Temp 97.7 F 06/18/23 07:41 Pulse 64 06/18/23 08:01 Resp 16 06/18/23 08:01 BP 163/91 H 06/18/23 07:41 Pulse Ox 99 06/18/23 07:41 O2 Del Method Room Air 06/18/23 07:41 BMI result Body Mass Index 20.9 Gen appear: Ill appearing HEENT: nonicteric, no cervical lymphadenopathy Chest: CTA CVS: Regular S1/S2 Abd: soft, tender mostly in epigastrium, no gauthier's, mildly distended Ext: no peripheral edema Neuro: A/Ox3, noted to move all extremities spontaneously Psych: interacting appropriately Results Labs 06/17/23 05:03 06/17/23 05:03 Assessment and Plan (1) Abdominal pain: Status: Acute (2) Nausea & vomiting: Status: Acute Plan Likely combination of acute on chronic panc and etOH gastritis. Other Ddx include PUD, GOO, esophagitis. Will set her up for an upper endoscopy for further evaluation and treatment. Please keep her NPO after MN for EGD tmrw. PPI BID empirically. Thank you for allowing me to participate in her care. Please do not hesitate to reach out for any questions or concerns. Time Spent With Patient Time: Total time managing care of this patient today ____ minutes. Procedures Date of Service Date of Service: 06/19/23
--- NOTE | 2023-06-18 12:11 | P.PNIM_ITS ---
Subjective Subjective Date of Service: 06/18/23 Interval History: abd pain Review of Systems abd pain similar to yesterday still feels nauseated, vomited , no fevers Physical Exam Vital Signs: Vital Signs: Last Vital Signs Temp 97.7 F 06/18/23 07:41 Pulse 64 06/18/23 08:01 Resp 16 06/18/23 08:01 BP 163/91 H 06/18/23 07:41 Pulse Ox 99 06/18/23 07:41 O2 Del Method Room Air 06/18/23 07:41 BMI result Body Mass Index 20.9 Appearance: Alert.? Oriented X3.? not in distress.? cvs: rrr, [id number] , no murmur res: clear to auscultation ,no rhonchii or wheezing abd: no rebound or guardin, moderate epigastric/llq , bs present. ext pulses present , no cyanosis . neuro: axo3 , nonfocal. Objective Data Active Medications Acetaminophen (Acetaminophen 325 Mg Tablet) 650 mg PO Q6H PRN PRN Reason: Pain, Mild (Pain Scale 1-3) Albuterol Sulfate (Albuterol Sulfate 90 Mcg 8 Gm Inhaler) 2 puff INHALE Q4H PRN PRN Reason: Wheezing Docusate Sodium (Docusate Sodium 100 Mg Capsule) 100 mg PO DAILY PRN PRN Reason: Constipation Enoxaparin Sodium (Enoxaparin Sodium 40 Mg/0.4 Ml Syringe) 40 mg SUBCUT Q24H [facility] Last Admin: 06/17/23 19:43 Dose: Not Given Documented By: ALEX Non-Admin Reason: given by previous RN per patient Fluticasone/Vilanterol (Fluticasone/Vilanterol 100/25 Blst.W.Dev) 1 puff INHALE RDAILY [facility] Last Admin: 06/18/23 07:59 Dose: 1 puff Documented By: ROBER Lactated Ringer's (Lr) 1,000 mls @ 80 mls/hr IVCONT .[id number] [facility] Last Admin: 06/18/23 11:50 Dose: 125 mls/hr Documented By: GUERA Levothyroxine Sodium (Levothyroxine Sodium 125 Mcg Tablet) 125 mcg PO DAILY@0600 [facility] Last Admin: 06/18/23 05:08 Dose: 125 mcg Documented By: ALEX Morphine Sulfate (Morphine Sulfate 2 Mg/Ml Cartridge) 2 mg IVPUSH Q4H PRN; Protocol PRN Reason: Pain, Severe (Pain Scale 7-10) Last Admin: 06/18/23 11:50 Dose: 2 mg Documented By: GUERA Multivitamins/Vitamin C (Multivitamin Tablet) 1 tab PO DAILY [facility] Last Admin: 06/18/23 10:52 Dose: Not Given Documented By: GUERA Non-Admin Reason: Patient Refused Ondansetron HCl (Ondansetron Hcl 4 Mg/2 Ml Vial) 4 mg IVPUSH Q8H PRN PRN Reason: Nausea and Vomiting Last Admin: 06/18/23 05:05 Dose: 4 mg Documented By: ALEX Oxycodone HCl (Oxycodone Hcl Immed Release 5 Mg Tablet) 5 mg PO Q6H PRN PRN Reason: Pain, Moderate(Pain Scale 4-6) Pantoprazole Sodium (Pantoprazole Sodium 40 Mg/10 Ml Vial) 40 mg IVPUSH BID@0630,1630 [facility] Last Admin: 06/18/23 08:30 Dose: 40 mg Documented By: GUERA Sodium Chloride (0.9 % Sodium Chloride Flush 3 Ml Syringe) 3 ml IVFLUSH QSHIFT [facility] Last Admin: 06/18/23 08:31 Dose: Not Given Documented By: GUERA Non-Admin Reason: IV Running Trazodone HCl (Trazodone Hcl 50 Mg Tablet) 50 mg PO BEDTIME PRN PRN Reason: Insomnia Last Admin: 06/17/23 20:03 Dose: 50 mg Documented By: ALEX Labs 06/17/23 05:03 06/17/23 05:03 Labs: Laboratory Results - last 24 hr 06/17/23 20:16 Urine Opiates Screen POSITIVE H Urine Fentanyl Screen Not Detected Ur Barbiturates Screen Not Detected Ur Phencyclidine Scrn Not Detected Ur Amphetamines Screen Not Detected U Benzodiazepines Scrn Not Detected Urine Cocaine Screen Not Detected U Marijuana (THC) Screen Not Detected Assessment and Plan (1) Abdominal pain: Status: Acute (2) Nausea & vomiting: Status: Acute Plan 42-year-old female with history alcohol abuse, hypothyroidism, chronic pancreatitis, moderate persistent asthma to be observed for intractable nausea/vomiting with poor po intake. severe epigastric pain with intractable nausea and vomiting lipase WNL, CT without evidence of acute pancreatitis but showing chronic changes of pancreatitis clinical alcoholic pancreatitis versus alcoholic gastritis urine drug screen-noted gross neg except opoids (on pain meds ). clear liquid diet, aggressive IV fluids,advanced as tolerated antiemetics p.r.n.,pain management using pain scale Gi eval. acute leukocytosis-likely reactive in setting of intractable vomiting -CT with possible mild colitis versus under distention of colon.? Low suspicion for infectious colitis no fever or diarrhae will add stool studies -follow CBC hypothyroidism-continue Synthroid alcohol use disorder -declines consult to Addiction Medicine.? -continue thiamine, folic acid -outside window for withdrawal moderate persistent asthma -no acute exacerbation -continue maintenance inhalers, albuterol p.r.n. DVT prophylaxis-Lovenox Full code inpatient need :severe epigastric pain with intractable nausea and vomiting-need iv hydration/antiemtics ,ppi Time Spent With Patient Time: Total time managing care of this patient today ____ minutes. Quality Stroke Does the patient have a stroke diagnosis?: No VTE Prior VTE?: No VTE Risk Level:: Medical - moderate - high VTE Device Contraindication: Treatment Not Indicated VTE Drug Contraindication: N/A - Med Ordered
--- NOTE | 2023-06-18 12:38 | MHC.CM.PN ---
Per MD rounds no dc today. Pt continues with ABD pain N/V+. DP Home self care. Out patient services [facility]. She will arrange for transport home.
[2023-06-18 16:00] VITALS: BP 159/88; PULSE 63; RESP 20; TEMP 36.7; O2SAT 99
[2023-06-18] MEDS: Lidocaine 4 % Patch ADH..PATCH 1 PATCH TRANSDERMA (16:11)
[2023-06-18] MEDS: Enoxaparin Sodium 40 MG/0.4 ML SYRINGE SUBCUT (18:29)
[2023-06-18 19:59] VITALS: BP 150/80; PULSE 63; RESP 20; TEMP 36.5; O2SAT 99
[2023-06-18] MEDS: Acetaminophen 325 MG TABLET 650 MG PO (20:34)
[2023-06-18] MEDS: 0.9 % Sodium Chloride Flush 3 ML SYRINGE IVFLUSH (20:34)
[2023-06-18] MEDS: traZODone HCL 50 MG TABLET PO (21:03)
[2023-06-18 22:23] VITALS: RESP 16
[2023-06-19] VITALS (11 sets, daily range): BP systolic 105–164; BP diastolic 58–86; PULSE 52–67; RESP 16–20; TEMP 36.1–37.1; O2SAT 97–100; BMI 20.8
[2023-06-19] MEDS: Lactated Ringers 1,000 ML 125 ML IVCONT ×3 (00:20→17:06)
[2023-06-19] MEDS: ondansetron HCL 4 MG/2 ML VIAL IVPUSH ×2 (00:35→22:04)
[2023-06-19] MEDS: Morphine Sulfate 2 MG/ML CARTRIDGE IVPUSH ×6 (00:35→22:05)
[2023-06-19] MEDS: Levothyroxine Sodium 125 MCG TABLET PO (05:10)
[2023-06-19] MEDS: Pantoprazole Sodium 40 MG/10 ML VIAL IVPUSH ×2 (06:43→17:01)
[2023-06-19] MEDS: Fluticasone/Vilanterol 100/25 BLST.W.DEV 1 PUFF INHALE (07:31)
[2023-06-19] MEDS: Lidocaine 4 % Patch ADH..PATCH 1 PATCH TRANSDERMA (09:39)
--- NOTE | 2023-06-19 11:30 | HO.ANESPROP2 ---
PMFSH Active Problems Active Problems: All Active Problems (Updated 06/16/23 @ 18:17 by PHOEBE Lomax) Abdominal pain (Acute) Nausea & vomiting (Acute) Colitis (Acute) Past Medical History Medical History Asthma Alcohol use disorder Hypothyroidism Chronic pancreatitis Functional capacity: independent ambulation Surgical History History of Problems with Anesthesia: No Social History Social History Alcohol intake: former Patient Tobacco Use Status: Former Tobacco user Tobacco use type: Cigarette service: No Meds Allergies Allergy/AdvReac Type Severity Reaction Status Date / Time oxycodone AdvReac Flushing Verified 06/16/23 20:25 Active Medications: Current Medications Acetaminophen (Acetaminophen 325 Mg Tablet) 650 mg PO Q6H PRN PRN Reason: Pain, Mild (Pain Scale 1-3) Last Admin: 06/18/23 20:34 Dose: 650 mg Albuterol Sulfate (Albuterol Sulfate 90 Mcg 8 Gm Inhaler) 2 puff INHALE Q4H PRN PRN Reason: Wheezing Capsaicin (Capsaicin 0.025% Cream 60 Gm Tube) 1 appl TOPICAL QID PRN; Protocol PRN Reason: abd pain Docusate Sodium (Docusate Sodium 100 Mg Capsule) 100 mg PO DAILY PRN PRN Reason: Constipation Enoxaparin Sodium (Enoxaparin Sodium 40 Mg/0.4 Ml Syringe) 40 mg SUBCUT Q24H [facility] [place] Last Admin: 06/18/23 18:29 Dose: 40 mg Fluticasone/Vilanterol (Fluticasone/Vilanterol 100/25 Blst.W.Dev) 1 puff INHALE RDAILY [facility] [place] Last Admin: 06/19/23 07:31 Dose: 1 puff Lactated Ringer's (Lr) 1,000 mls @ 80 mls/hr IVCONT .[id number] [facility] [place] Last Admin: 06/19/23 09:38 Dose: 125 mls/hr Levothyroxine Sodium (Levothyroxine Sodium 125 Mcg Tablet) 125 mcg PO DAILY@0600 [facility] [place] Last Admin: 06/19/23 05:10 Dose: 125 mcg Lidocaine (Lidocaine 4 % Patch Adh..Patch) 1 patch TRANSDERMA DAILY [facility] [place]; Protocol Last Admin: 06/19/23 09:39 Dose: 1 patch Morphine Sulfate (Morphine Sulfate 2 Mg/Ml Cartridge) 2 mg IVPUSH Q4H PRN; Protocol PRN Reason: Pain, Severe (Pain Scale 7-10) Last Admin: 06/19/23 09:39 Dose: 2 mg Multivitamins/Vitamin C (Multivitamin Tablet) 1 tab PO DAILY [facility] [place] Last Admin: 06/19/23 09:40 Dose: Not Given Ondansetron HCl (Ondansetron Hcl 4 Mg/2 Ml Vial) 4 mg IVPUSH Q8H PRN PRN Reason: Nausea and Vomiting Last Admin: 06/19/23 00:35 Dose: 4 mg Oxycodone HCl (Oxycodone Hcl Immed Release 5 Mg Tablet) 5 mg PO Q6H PRN PRN Reason: Pain, Moderate(Pain Scale 4-6) Pantoprazole Sodium (Pantoprazole Sodium 40 Mg/10 Ml Vial) 40 mg IVPUSH BID@0630,1630 [facility] [place] Last Admin: 06/19/23 06:43 Dose: 40 mg Sodium Chloride (0.9 % Sodium Chloride Flush 3 Ml Syringe) [facility] Last Admin: 06/19/23 10:41 Dose: Not Given Trazodone HCl (Trazodone Hcl 50 Mg Tablet) 50 mg PO BEDTIME PRN PRN Reason: Insomnia Last Admin: 06/18/23 21:03 Dose: 50 mg Home Medications Medication Instructions Recorded Confirmed Last Taken Type acetaminophen 325 mg tablet 650 mg PO Q4H PRN mild pain 06/16/23 06/16/23 Unknown History albuterol sulfate 90 mcg/actuation 2 puff inhalation Q4H PRN Wheezing 06/16/23 06/16/23 Unknown History aerosol inhaler (Ventolin HFA) budesonide-formoterol HFA 80 2 puff inhalation BID 06/16/23 06/16/23 Unknown History mcg-4.5 mcg/actuation aerosol inhaler (Symbicort) levothyroxine 125 mcg tablet 125 mcg PO DAILY 06/16/23 06/16/23 Unknown History multivitamin with folic acid 400 1 tab PO DAILY 06/16/23 06/16/23 Unknown History mcg tablet (Daily-[place] (with folic acid)) ondansetron 4 mg disintegrating 4 mg PO Q8H PRN Nausea 06/16/23 06/16/23 Unknown History tablet trazodone 50 mg tablet 50 mg PO BEDTIME PRN Insomnia 06/16/23 06/16/23 Unknown History Exam Exam Date and Time: June 19, 2023 1130 Height,Weight and Vital Signs: Height 5 ft 1 in Weight 49.895 kg Last Vital Signs Temp 97.6 F 06/19/23 11:08 Pulse 62 06/19/23 11:08 Resp 16 06/19/23 11:08 BP 146/83 H 06/19/23 11:08 Pulse Ox 98 06/19/23 11:08 O2 Del Method Room Air 06/19/23 11:08 Pertinent Lab Results Pertinent Lab Results: Laboratory Tests 06/16/23 06/16/23 06/16/23 11:38 11:48 11:50 WBC 13.0 H RBC 4.27 Hgb 13.3 Hct 38.1 MCV 89.2 MCH 31.1 MCHC 34.9 RDW 12.3 Plt Count 426 H MPV 10.3 Immature Gran % (Auto) 0.5 H Neut % (Auto) 83.4 H Lymph % (Auto) 11.5 L [place] % (Auto) 4.1 Eos % (Auto) 0.2 Baso % (Auto) 0.3 Lymph # (Auto) 1.5 [place] # (Auto) 0.5 Eos # (Auto) 0.0 Baso # (Auto) 0.0 Abs Immat Gran (auto) 0.06 H Absolute Neuts (auto) 10.8 H Absolute Nucleated RBC 0.000 Nucleated RBC % (auto) 0.0 PT 10.5 L INR 0.9 Sodium 137 Potassium 3.8 Chloride 107 Carbon Dioxide 22 Anion Gap 12 BUN 9 Creatinine 0.68 Estim Creat Clear Calc 82.1 Estimated GFR > 60 Random Glucose 127 H Calcium 9.5 Magnesium 1.8 Total Bilirubin 0.3 AST 17 ALT 8 Alkaline Phosphatase 65 Troponin I High Sens < 2.7 Total Protein 6.8 Albumin 4.0 Lipase 63 Beta HCG, Quant < 2 Urine Color Yellow Urine Appearance Clear Urine pH 6.5 Ur Specific [place] 1.025 Urine Protein Trace Urine Glucose (UA) Negative Urine Ketones Trace Urine Blood Trace H Urine Nitrite Negative Ur Leukocyte Esterase Negative Urine RBC 3-5 H Urine WBC 0-5 Ur Squamous Epith Cells 6-10 Urine Bacteria 1+ Hyaline Casts 0-2 Urine Opiates Screen Urine Fentanyl Screen Ur Barbiturates Screen Ur Phencyclidine Scrn Ur Amphetamines Screen U Benzodiazepines Scrn Urine Cocaine Screen U Marijuana (THC) Screen Ethyl Alcohol < 10 06/17/23 06/17/23 05:03 20:16 WBC 12.9 H RBC 3.87 L Hgb 12.1 Hct 34.5 L MCV 89.1 MCH 31.3 MCHC 35.1 H RDW 12.1 Plt Count 360 MPV 11.4 Immature Gran % (Auto) 0.3 Neut % (Auto) 79.9 H Lymph % (Auto) 14.0 L [place] % (Auto) 5.4 Eos % (Auto) 0.2 Baso % (Auto) 0.2 Lymph # (Auto) 1.8 [place] # (Auto) 0.7 Eos # (Auto) 0.0 Baso # (Auto) 0.0 Abs Immat Gran (auto) 0.04 H Absolute Neuts (auto) 10.3 H Absolute Nucleated RBC 0.000 Nucleated RBC % (auto) 0.0 PT INR Sodium 134 L Potassium 3.4 Chloride 105 Carbon Dioxide 23 Anion Gap 9 L BUN 5 L Creatinine 0.52 Estim Creat Clear Calc 107.4 Estimated GFR > 60 Random Glucose 87 Calcium 8.9 D Magnesium Total Bilirubin AST ALT Alkaline Phosphatase Troponin I High Sens Total Protein Albumin Lipase Beta HCG, Quant Urine Color Urine Appearance Urine pH Ur Specific [place] Urine Protein Urine Glucose (UA) Urine Ketones Urine Blood Urine Nitrite Ur Leukocyte Esterase Urine RBC Urine WBC Ur Squamous Epith Cells Urine Bacteria Hyaline Casts Urine Opiates Screen POSITIVE H Urine Fentanyl Screen Not Detected Ur Barbiturates Screen Not Detected Ur Phencyclidine Scrn Not Detected Ur Amphetamines Screen Not Detected U Benzodiazepines Scrn Not Detected Urine Cocaine Screen Not Detected U Marijuana (THC) Screen Not Detected Ethyl Alcohol Airway Mallampati Class: II TM Dist: >3cm Neck ROM: Full Loose/Missing/Broken Teeth: No Heart: RRR Lungs: CTA Assessment and Plan Assessment Anesthesia Assessment: Anesthesia Plan Discussed and Chart Reviewed Final Anesthetic Review History of Problems with Anesthesia: No NPO: Yes ASA Class: III Final Preanesthetic Review: Meds/Allgs Chart Reviewed, Consent Obtained/Reviewed and Anes Risks/Benef Reviewed Patient Risk: Intermediate Procedure Risk: Intermediate Anesthetic Plan Anesthetic Plan: MAC: Disposition: Standard PACU
--- NOTE | 2023-06-19 12:49 | P.OP_ITS ---
Operative Note Operative Note Date of Service: 06/19/23 Narrative: Procedure: Esophagogastroduodenoscopy Endoscopist: Mary Mcqueen MD Indication: Abd pain, N/V Anesthesia Provider: Gabriela Waite MD Anesthesia Type: MAC Instrument: Olympus [id number] ?? EGD Procedure:?? The procedure, indications, preparation and potential complications were reviewed with the patient, who indicated understanding and gave written informed consent to proceed. A physical exam was performed. The endoscope was introduced through the mouth, and advanced to the second part of duodenum. The mucosa was carefully examined on slow withdrawal of the endoscope. The patient tolerated the procedure well. There were no immediate complications.? ? EGD Findings:? * Esophagus:? Small ulcerations < 5 mm at the GE junction noted. The Z line was at 36 cm. * Stomach:? Normal mucosa was noted in the stomach. * Duodenum:? Erythema and edema of the duodenal bulb was noted. Remaining mucosa was normal to the extent visualised. Cold forceps biopsies were taken from duodenal bulb and second portion of the duodenum to rule out celiac sprue. ? EGD Impressions:? * Grade A esophagitis * Normal stomach * Bulbar duodenitis (biopsy) Recommendations:?? * Suspect bulbar duodenitis could be secondary to pancreatitis with adjacent inflammation. If no improvement in sx by tmrw, low threshold to repeat contrasted CT to evaluate for any evolving changes such as peripancreatic fluid collection. * Follow biopsy results. * Continue PPI therapy. * Resume low fat liquid diet
--- NOTE | 2023-06-19 12:49 | MHC.SHP ---
Pre-Procedural Eval Section A Date of Service: 06/19/23 The patient is an INPATIENT: Yes The History & Physical has been completed within 30 days and I have reviewed it.: Yes Section B Chief Complaint: Epigastric pain,N/V Allergies: Allergies Allergy/AdvReac Type Severity Reaction Status Date / Time oxycodone AdvReac Flushing Verified 06/16/23 20:25 Plan Diagnosis/Plan: Unchanged I have reviewed the history and physical and performed a pertinent physical examination on my patient. No changes have occurred unless specified. Time Spent With Patient Time: Total time managing care of this patient today ____ minutes.
--- NOTE | 2023-06-19 14:24 | HO.PM.IMPN ---
Subjective Subjective Date of Service: 06/19/23 Interval History: abd pain Review of Systems still has abd pain , feels nauseated, vomited , no fevers Physical Exam Vital Signs: Vital Signs: Last Vital Signs Temp 97.7 F 06/19/23 14:20 Pulse 54 06/19/23 14:20 Resp 17 06/19/23 14:20 BP 164/81 H 06/19/23 14:20 Pulse Ox 99 06/19/23 14:20 O2 Del Method Room Air 06/19/23 14:20 O2 Flow Rate 6 06/19/23 13:05 BMI result Body Mass Index 20.8 Appearance: Alert.? Oriented X3.? not in distress.? cvs: rrr, [id number] . res: clear to auscultation ,no rhonchii or wheezing abd: no rebound or guardin, moderate epigastric/llq , bs present. ext pulses present , no cyanosis . neuro: axo3 , nonfocal. Objective Data Active Medications Acetaminophen (Acetaminophen 325 Mg Tablet) 650 mg PO Q6H PRN PRN Reason: Pain, Mild (Pain Scale 1-3) Last Admin: 06/18/23 20:34 Dose: 650 mg Documented By: TILAORALJuan M Albuterol Sulfate (Albuterol Sulfate 90 Mcg 8 Gm Inhaler) 2 puff INHALE Q4H PRN PRN Reason: Wheezing Capsaicin (Capsaicin 0.025% Cream 60 Gm Tube) 1 appl TOPICAL QID PRN; Protocol PRN Reason: abd pain Docusate Sodium (Docusate Sodium 100 Mg Capsule) 100 mg PO DAILY PRN PRN Reason: Constipation Enoxaparin Sodium (Enoxaparin Sodium 40 Mg/0.4 Ml Syringe) 40 mg SUBCUT Q24H [facility] Last Admin: 06/18/23 18:29 Dose: 40 mg Documented By: GUERA Fluticasone/Vilanterol (Fluticasone/Vilanterol 100/25 Blst.W.Dev) 1 puff INHALE RDAILY [facility] Last Admin: 06/19/23 07:31 Dose: 1 puff Documented By: DAVID Lactated Ringer's (Lr) 1,000 mls @ 80 mls/hr IVCONT .[id number] [facility] Last Admin: 06/19/23 09:38 Dose: 125 mls/hr Documented By: CASEY Levothyroxine Sodium (Levothyroxine Sodium 125 Mcg Tablet) 125 mcg PO DAILY@0600 [facility] Last Admin: 06/19/23 05:10 Dose: 125 mcg Documented By: KARLOS Comments: downtime Lidocaine (Lidocaine 4 % Patch Adh..Patch) 1 patch TRANSDERMA DAILY [facility]; Protocol Last Admin: 06/19/23 09:39 Dose: 1 patch Documented By: CASEY Morphine Sulfate (Morphine Sulfate 2 Mg/Ml Cartridge) 2 mg IVPUSH Q4H PRN; Protocol PRN Reason: Pain, Severe (Pain Scale 7-10) Last Admin: 06/19/23 13:55 Dose: 2 mg Documented By: POLY Multivitamins/Vitamin C (Multivitamin Tablet) 1 tab PO DAILY [facility] Last Admin: 06/19/23 09:40 Dose: Not Given Documented By: CASEY Non-Admin Reason: Patient Refused Ondansetron HCl (Ondansetron Hcl 4 Mg/2 Ml Vial) 4 mg IVPUSH Q8H PRN PRN Reason: Nausea and Vomiting Last Admin: 06/19/23 00:35 Dose: 4 mg Documented By: KARLOS Oxycodone HCl (Oxycodone Hcl Immed Release 5 Mg Tablet) 5 mg PO Q6H PRN PRN Reason: Pain, Moderate(Pain Scale 4-6) Pantoprazole Sodium (Pantoprazole Sodium 40 Mg/10 Ml Vial) 40 mg IVPUSH BID@0630,1630 [facility] Last Admin: 06/19/23 06:43 Dose: 40 mg Documented By: KARLOS Comments: downtime Sodium Chloride (0.9 % Sodium Chloride Flush 3 Ml Syringe) 3 ml IVFLUSH QSHIFT [facility] Last Admin: 06/19/23 10:41 Dose: Not Given Documented By: CASEY Non-Admin Reason: IV Running Trazodone HCl (Trazodone Hcl 50 Mg Tablet) 50 mg PO BEDTIME PRN PRN Reason: Insomnia Last Admin: 06/18/23 21:03 Dose: 50 mg Documented By: KARLOS Labs 06/17/23 05:03 06/17/23 05:03 Assessment and Plan (1) Nausea & vomiting: Status: Acute (2) Abdominal pain: Status: Acute Plan 42-year-old female with history alcohol abuse, hypothyroidism, chronic pancreatitis, moderate persistent asthma to be observed for intractable nausea/vomiting with poor po intake. severe epigastric pain with intractable nausea and vomiting lipase WNL, CT without evidence of acute pancreatitis but showing chronic changes of pancreatitis clinical alcoholic pancreatitis versus alcoholic gastritis urine drug screen-noted gross neg except opoids (on pain meds ). clear liquid diet, aggressive IV fluids,advanced as tolerated antiemetics p.r.n.,pain management using pain scale Gi eval-need egd. acute leukocytosis-likely reactive in setting of intractable vomiting -CT with possible mild colitis versus under distention of colon.? Low suspicion for infectious colitis no fever or diarrhae will add stool studies -follow CBC hypothyroidism-continue Synthroid alcohol use disorder -declines consult to Addiction Medicine.? -continue thiamine, folic acid -outside window for withdrawal moderate persistent asthma-no acute exacerbation -continue maintenance inhalers, albuterol p.r.n. DVT prophylaxis-Lovenox Full code inpatient need :severe epigastric pain with intractable nausea and vomiting-need iv hydration/antiemtics ,ppi ,need egd ,also oral intake not optimal. Time Spent With Patient Time: Total time managing care of this patient today ____ minutes. Quality Stroke Does the patient have a stroke diagnosis?: No VTE Prior VTE?: No VTE Risk Level:: Medical - moderate - high VTE Device Contraindication: Treatment Not Indicated VTE Drug Contraindication: N/A - Med Ordered
[2023-06-19] MEDS: Enoxaparin Sodium 40 MG/0.4 ML SYRINGE SUBCUT (17:01)
[2023-06-19] MEDS: traZODone HCL 50 MG TABLET PO (22:12)
[2023-06-20] MEDS: Lactated Ringers 1,000 ML 80 ML IVCONT (00:42)
[2023-06-20] MEDS: Morphine Sulfate 2 MG/ML CARTRIDGE IVPUSH ×5 (02:03→21:37)
[2023-06-20] MEDS: Levothyroxine Sodium 125 MCG TABLET PO (05:52)
[2023-06-20] MEDS: Pantoprazole Sodium 40 MG/10 ML VIAL IVPUSH ×2 (05:52→17:10)
[2023-06-20] MEDS: ondansetron HCL 4 MG/2 ML VIAL IVPUSH ×2 (06:01→17:09)
[2023-06-20 07:19] VITALS: BP 138/80; PULSE 64; RESP 18; TEMP 36.5; O2SAT 98
[2023-06-20] MEDS: Multivitamin TABLET 1 TAB PO (09:22)
[2023-06-20] MEDS: Lidocaine 4 % Patch ADH..PATCH 1 PATCH TRANSDERMA (09:23)
[2023-06-20 09:52] VITALS: O2SAT 96
--- NOTE | 2023-06-20 11:08 | MHC.CM.PN ---
Per MD rounds no discharge today. Discharge is anticipated tomorrow. DP to home self care. Patient will arrange for transportation home.
[2023-06-20] MEDS: Lactated Ringers 1,000 ML 100 ML IVCONT (12:20)
--- NOTE | 2023-06-20 12:38 | HO.PM.IMPN ---
Subjective Subjective Date of Service: 06/20/23 Interval History: abd pain Review of Systems Still has epigastric discomfort, still feel nauseated unable to take p.o.. Denies any fever or chills Physical Exam Vital Signs: Vital Signs: Last Vital Signs Temp 97.7 F 06/20/23 07:19 Pulse 64 06/20/23 07:19 Resp 18 06/20/23 07:19 BP 138/80 06/20/23 07:19 Pulse Ox 96 06/20/23 09:52 O2 Del Method Room Air 06/20/23 09:52 O2 Flow Rate 6 06/19/23 13:05 BMI result Body Mass Index 20.8 Appearance: Alert.? Oriented X3.? not in distress.? cvs: rrr, [id number] . res: clear to auscultation ,no rhonchii or wheezing abd: no rebound or guardin, moderate epigastric/llq , bs present. ext pulses present , no cyanosis . neuro: axo3 , nonfocal. Objective Data Active Medications Acetaminophen (Acetaminophen 325 Mg Tablet) 650 mg PO Q6H PRN PRN Reason: Pain, Mild (Pain Scale 1-3) Last Admin: 06/18/23 20:34 Dose: 650 mg Documented By: KARLOS Albuterol Sulfate (Albuterol Sulfate 90 Mcg 8 Gm Inhaler) 2 puff INHALE Q4H PRN PRN Reason: Wheezing Capsaicin (Capsaicin 0.025% Cream 60 Gm Tube) 1 appl TOPICAL QID PRN; Protocol PRN Reason: abd pain Docusate Sodium (Docusate Sodium 100 Mg Capsule) 100 mg PO DAILY PRN PRN Reason: Constipation Enoxaparin Sodium (Enoxaparin Sodium 40 Mg/0.4 Ml Syringe) 40 mg SUBCUT Q24H [facility] Last Admin: 06/19/23 17:01 Dose: 40 mg Documented By: CASEY Fluticasone/Vilanterol (Fluticasone/Vilanterol 100/25 Blst.W.Dev) 1 puff INHALE RDAILY [facility] Last Admin: 06/20/23 07:47 Dose: Not Given Documented By: DAVID Non-Admin Reason: Patient Refused Lactated Ringer's (Lr) 1,000 mls @ 100 mls/hr IVCONT .Q10H [facility] Last Admin: 06/20/23 12:20 Dose: 100 mls/hr Documented By: CASEY Levothyroxine Sodium (Levothyroxine Sodium 125 Mcg Tablet) 125 mcg PO DAILY@0600 [facility] Last Admin: 06/20/23 05:52 Dose: 125 mcg Documented By: MICHAELLE Lidocaine (Lidocaine 4 % Patch Adh..Patch) 1 patch TRANSDERMA DAILY [facility]; Protocol Last Admin: 06/20/23 09:23 Dose: 1 patch Documented By: CASEY Morphine Sulfate (Morphine Sulfate 2 Mg/Ml Cartridge) 2 mg IVPUSH Q4H PRN; Protocol PRN Reason: Pain, Severe (Pain Scale 7-10) Last Admin: 06/20/23 10:39 Dose: 2 mg Documented By: CASEY Multivitamins/Vitamin C (Multivitamin Tablet) 1 tab PO DAILY [facility] Last Admin: 06/20/23 09:22 Dose: 1 tab Documented By: CASEY Ondansetron HCl (Ondansetron Hcl 4 Mg/2 Ml Vial) 4 mg IVPUSH Q8H PRN PRN Reason: Nausea and Vomiting Last Admin: 06/20/23 06:01 Dose: 4 mg Documented By: MICHAELLE Oxycodone HCl (Oxycodone Hcl Immed Release 5 Mg Tablet) 5 mg PO Q6H PRN PRN Reason: Pain, Moderate(Pain Scale 4-6) Pantoprazole Sodium (Pantoprazole Sodium 40 Mg/10 Ml Vial) 40 mg IVPUSH BID@0630,1630 [facility] Last Admin: 06/20/23 05:52 Dose: 40 mg Documented By: MICHAELLE Sodium Chloride (0.9 % Sodium Chloride Flush 3 Ml Syringe) 3 ml IVFLUSH QSHIFT [facility] Last Admin: 06/20/23 09:16 Dose: Not Given Documented By: CASEY Non-Admin Reason: IV Running Trazodone HCl (Trazodone Hcl 50 Mg Tablet) 50 mg PO BEDTIME PRN PRN Reason: Insomnia Last Admin: 06/19/23 22:12 Dose: 50 mg Documented By: MICHAELLE Labs 06/17/23 05:03 06/17/23 05:03 Assessment and Plan (1) Nausea & vomiting: Status: Acute (2) Abdominal pain: Status: Acute Plan 42-year-old female with history alcohol abuse, hypothyroidism, chronic pancreatitis, moderate persistent asthma to be observed for intractable nausea/vomiting with poor po intake. severe epigastric pain with intractable nausea and vomiting lipase WNL, CT without evidence of acute pancreatitis but showing chronic changes of pancreatitis clinical alcoholic pancreatitis versus alcoholic gastritis egd done(06/19/23) -found to have esophagitis/bulbar duodenitis urine drug screen-noted gross neg except opoids (due to pain meds ). only little improvement - added ct scan to reeval-if any peripancreatic collection? continue antiemetics p.r.n.,pain management using pain scale,clear liquid diet, aggressive IV fluids, acute leukocytosis-likely reactive in setting of intractable vomiting -CT with possible mild colitis versus under distention of colon.? Low suspicion for infectious colitis no fever or diarrhae hypothyroidism-continue Synthroid alcohol use disorder -declines consult to Addiction Medicine.? -continue thiamine, folic acid -outside window for withdrawal moderate persistent asthma-no acute exacerbation -continue maintenance inhalers, albuterol p.r.n. DVT prophylaxis-Lovenox Full code inpatient need :severe epigastric pain with intractable nausea and vomiting-need iv hydration/antiemtics ,ppi ,need egd ,also oral intake not optimal. Time Spent With Patient Time: Total time managing care of this patient today ____ minutes. Quality Stroke Does the patient have a stroke diagnosis?: No VTE Prior VTE?: No VTE Risk Level:: Medical - moderate - high VTE Device Contraindication: Treatment Not Indicated VTE Drug Contraindication: N/A - Med Ordered
--- NOTE | 2023-06-20 14:24 | HO.POSTANES ---
Post Anesthesia Evaluation Post Anesthesia Evaluation Date of Service: 06/20/23 Vital Signs: Vital Signs Temp Pulse Resp BP Pulse Ox O2 Del Method 06/20/23 09:52 96 Room Air 06/20/23 07:19 97.7 F 64 18 138/80 98 Room Air Anesthesia: Monitored Mental Status: Awake Pain Control: Satisfactory Nausea/Vomiting: None Hydration: Adequate Anesthesia-Related Issues: No Anes. Related Issues
[2023-06-20] MEDS: iohexoL 350 MG/ML 100 ML INFUS..BTL IV (15:15)
[2023-06-20 15:46] VITALS: BP 162/73; PULSE 70; RESP 20; TEMP 36.2; O2SAT 98
[2023-06-20] MEDS: Enoxaparin Sodium 40 MG/0.4 ML SYRINGE SUBCUT (17:10)
[2023-06-20 19:24] VITALS: BP 153/87; PULSE 60; RESP 20; TEMP 36.4; O2SAT 97
[2023-06-20] MEDS: diphenhydrAMINE HCL 50 MG/ML VIAL 25 MG IVPUSH (21:38)
[2023-06-20] MEDS: traZODone HCL 50 MG TABLET PO (22:15)
[2023-06-20] MEDS: LORazepam 2 MG/ML VIAL 1 MG IVPUSH (22:15)
[2023-06-20] MEDS: Docusate Sodium 100 MG CAPSULE PO (22:15)
--- NOTE | 2023-06-20 23:21 | PC.NURSE ---
Care assumed 19:00. Pt A&Ox4, neuros intact. On CIWA protocol. Sz precautions in place. Pt states her last drink was Friday morning. Dr. Hall notified of CIWA score this evening, 1x ativan IVP ordered as well as 1x IV benadryl for itching. +perrl 3mm brisk. Pt went down for routine head CT, results pending. LSCTA on RA without distress. Pt states LBM 9/4 but passing some gas . Prn colace ordered and given. Denies n/v. Abd soft, appropriately tender to mid-abdomen where pt continues to indicate pain. Medicated with prn morphine with +effect. Covering MD notified of oxycodone prn order to which pt has a documented allergy, not given. Continues on LR at 100ml/hr. Frequent purposeful rounding for safety. Handoff report given 23:00.
[2023-06-21] VITALS: BP 129/64; PULSE 64; RESP 16; TEMP 36; O2SAT 99
[2023-06-21] MEDS: Lactated Ringers 1,000 ML 100 ML IVCONT ×3 (00:13→17:33)
[2023-06-21] MEDS: Morphine Sulfate 2 MG/ML CARTRIDGE IVPUSH ×5 (04:11→21:19)
[2023-06-21 06:01] LABS: Anion Gap 12 (12-20); Blood Urea Nitrogen 6 mg/dL (9-16); Calcium 9.7 mg/dL (8.4-10.2); Carbon Dioxide 24 mmol/L (22-29); Chloride 103 mmol/L (96-108); Creatinine Clr Calc Pharmacy 91.5; Estimated Glomerular Filt Rate > 60; Glucose Random 94 mg/dL (60-115); Potassium 3.2 mmol/L (3.3-5.1); Sodium 136 mmol/L (135-145)
[2023-06-21] MEDS: Pantoprazole Sodium 40 MG/10 ML VIAL IVPUSH ×2 (06:32→15:31)
[2023-06-21] MEDS: Levothyroxine Sodium 125 MCG TABLET PO (06:32)
[2023-06-21 06:59] VITALS: BP 133/68; PULSE 68; RESP 16; TEMP 36; O2SAT 96
[2023-06-21] MEDS: Fluticasone/Vilanterol 100/25 BLST.W.DEV 1 PUFF INHALE (07:46)
[2023-06-21 07:47] VITALS: PULSE 67; RESP 16; O2SAT 97
[2023-06-21] MEDS: ondansetron HCL 4 MG/2 ML VIAL IVPUSH (08:44)
[2023-06-21] MEDS: Lidocaine 4 % Patch ADH..PATCH 1 PATCH TRANSDERMA (08:55)
[2023-06-21] MEDS: 0.9 % Sodium Chloride Flush 3 ML SYRINGE IVFLUSH ×2 (08:57→15:31)
[2023-06-21] MEDS: diphenhydrAMINE HCL 25 MG CAPSULE PO (09:35)
[2023-06-21] MEDS: Metoclopramide HCl 5 MG TABLET PO (12:49)
--- NOTE | 2023-06-21 13:20 | P.PNIM_ITS ---
Subjective Subjective Date of Service: 06/21/23 Interval History: abd pain Review of Systems Still has epigastric discomfort, still feel nauseated unable to take p.o.. Denies any fever or chills Physical Exam 2 Vital Signs: Vital Signs: Last Vital Signs Temp 96.8 F 06/21/23 06:59 Pulse 67 06/21/23 07:47 Resp 16 06/21/23 07:47 BP 133/68 06/21/23 06:59 Pulse Ox 96 06/21/23 06:59 O2 Del Method Room Air 06/21/23 06:59 O2 Flow Rate 6 06/19/23 13:05 BMI result Body Mass Index 20.8 Appearance: Alert.? Oriented X3.? not in distress.? cvs: rrr, [id number] . res: clear to auscultation ,no rhonchii or wheezing abd: no rebound or guardin, moderate epigastric/llq , bs present. ext pulses present , no cyanosis . neuro: axo3 , nonfocal. Objective Data Active Medications Acetaminophen (Acetaminophen 325 Mg Tablet) 650 mg PO Q6H PRN PRN Reason: Pain, Mild (Pain Scale 1-3) Last Admin: 06/18/23 20:34 Dose: 650 mg Documented By: KARLOS Albuterol Sulfate (Albuterol Sulfate 90 Mcg 8 Gm Inhaler) 2 puff INHALE Q4H PRN PRN Reason: Wheezing Capsaicin (Capsaicin 0.025% Cream 60 Gm Tube) 1 appl TOPICAL QID PRN; Protocol PRN Reason: abd pain Docusate Sodium (Docusate Sodium 100 Mg Capsule) 100 mg PO DAILY PRN PRN Reason: Constipation Last Admin: 06/20/23 22:15 Dose: 100 mg Documented By: DANIS Enoxaparin Sodium (Enoxaparin Sodium 40 Mg/0.4 Ml Syringe) 40 mg SUBCUT Q24H [facility] Last Admin: 06/20/23 17:10 Dose: 40 mg Documented By: CASEY Fluticasone/Vilanterol (Fluticasone/Vilanterol 100/25 Blst.W.Dev) 1 puff INHALE RDAILY [facility] Last Admin: 06/21/23 07:46 Dose: 1 puff Documented By: DAVID Lactated Ringer's (Lr) 1,000 mls @ 100 mls/hr IVCONT .Q10H [facility] Last Admin: 06/21/23 08:44 Dose: 100 mls/hr Documented By: MILAGROS Levothyroxine Sodium (Levothyroxine Sodium 125 Mcg Tablet) 125 mcg PO DAILY@0600 [facility] Last Admin: 06/21/23 06:32 Dose: 125 mcg Documented By: RODOLFO Lidocaine (Lidocaine 4 % Patch Adh..Patch) 1 patch TRANSDERMA DAILY [facility]; Protocol Last Admin: 06/21/23 08:55 Dose: 1 patch Documented By: MILAGROS Morphine Sulfate (Morphine Sulfate 2 Mg/Ml Cartridge) 2 mg IVPUSH Q4H PRN; Protocol PRN Reason: Pain, Severe (Pain Scale 7-10) Last Admin: 06/21/23 13:01 Dose: 2 mg Documented By: MILAGROS Multivitamins/Vitamin C (Multivitamin Tablet) 1 tab PO DAILY [facility] Last Admin: 06/21/23 10:52 Dose: Not Given Documented By: MILAGROS Non-Admin Reason: Nausea Ondansetron HCl (Ondansetron Hcl 4 Mg/2 Ml Vial) 4 mg IVPUSH Q8H PRN PRN Reason: Nausea and Vomiting Last Admin: 06/21/23 08:44 Dose: 4 mg Documented By: MILAGROS Oxycodone HCl (Oxycodone Hcl Immed Release 5 Mg Tablet) 5 mg PO Q6H PRN PRN Reason: Pain, Moderate(Pain Scale 4-6) Pantoprazole Sodium (Pantoprazole Sodium 40 Mg/10 Ml Vial) 40 mg IVPUSH BID@0630,1630 [facility] Last Admin: 06/21/23 06:32 Dose: 40 mg Documented By: RODOLFO Sodium Chloride (0.9 % Sodium Chloride Flush 3 Ml Syringe) 3 ml IVFLUSH QSHIFT [facility] Last Admin: 06/21/23 08:57 Dose: 3 ml Documented By: MILAGROS Trazodone HCl (Trazodone Hcl 50 Mg Tablet) 50 mg PO BEDTIME PRN PRN Reason: Insomnia Last Admin: 06/20/23 22:15 Dose: 50 mg Documented By: DANIS Labs 06/17/23 05:03 06/21/23 05:09 Labs: Laboratory Results - last 24 hr 06/21/23 05:09 Anion Gap 12 Estim Creat Clear Calc 91.5 Estimated GFR > 60 Random Glucose 94 Calcium 9.7 D Assessment and Plan (1) Nausea & vomiting: Status: Acute (2) Abdominal pain: Status: Acute Plan 42-year-old female with history alcohol abuse, hypothyroidism, chronic pancreatitis, moderate persistent asthma to be observed for intractable nausea/vomiting with poor po intake. severe epigastric pain with intractable nausea and vomiting lipase WNL, CT without evidence of acute pancreatitis but showing chronic changes of pancreatitis clinical alcoholic pancreatitis versus alcoholic gastritis egd done(06/19/23) -found to have esophagitis/bulbar duodenitis urine drug screen-noted gross neg except opoids (due to pain meds ). ct abd -No acute intra-abdominal process seen. No peripancreatic fluid collection seen. ct head negative abd pain somewhat improving ,but po intake still low. continue antiemetics p.r.n.,pain management using pain scale,clear liquid diet, aggressive IV fluids, acute leukocytosis-likely reactive in setting of intractable vomiting -CT with possible mild colitis versus under distention of colon.? Low suspicion for infectious colitis no fever or diarrhae hypothyroidism-continue Synthroid alcohol use disorder -declines consult to Addiction Medicine.? -continue thiamine, folic acid -outside window for withdrawal moderate persistent asthma-no acute exacerbation -continue maintenance inhalers, albuterol p.r.n. DVT prophylaxis-Lovenox Full code inpatient need :severe epigastric pain with intractable nausea and vomiting-need iv hydration/antiemtics ,ppi ,need egd ,also oral intake not optimal. Time Spent With Patient Time: Total time managing care of this patient today ____ minutes. Quality Stroke Does the patient have a stroke diagnosis?: No VTE Prior VTE?: No VTE Risk Level:: Medical - moderate - high VTE Device Contraindication: Treatment Not Indicated VTE Drug Contraindication: N/A - Med Ordered
[2023-06-21] MEDS: Potassium Chloride Packet 20 MEQ PACKET 40 MEQ PO (14:45)
[2023-06-21 15:08] VITALS: BP 123/68; PULSE 60; RESP 18; TEMP 36.2; O2SAT 99
[2023-06-21] MEDS: Enoxaparin Sodium 40 MG/0.4 ML SYRINGE SUBCUT (17:07)
[2023-06-21] MEDS: traZODone HCL 50 MG TABLET PO (21:21)
[2023-06-21 23:28] VITALS: BP 116/59; PULSE 58; RESP 18; TEMP 36.2; O2SAT 99
[2023-06-22] MEDS: Lactated Ringers 1,000 ML 100 ML IVCONT (03:32)
[2023-06-22] MEDS: Morphine Sulfate 2 MG/ML CARTRIDGE IVPUSH ×2 (03:34→07:49)
[2023-06-22 05:46] LABS: Potassium 3.5 mmol/L (3.3-5.1)
[2023-06-22] MEDS: Pantoprazole Sodium 40 MG/10 ML VIAL IVPUSH (06:26)
[2023-06-22] MEDS: Levothyroxine Sodium 125 MCG TABLET PO (06:26)
[2023-06-22 07:07] VITALS: BP 141/79; PULSE 68; RESP 16; TEMP 36.8; O2SAT 98
[2023-06-22] MEDS: Fluticasone/Vilanterol 100/25 BLST.W.DEV 1 PUFF INHALE (07:44)
[2023-06-22 07:45] VITALS: PULSE 67; RESP 16; O2SAT 99
[2023-06-22] MEDS: ondansetron HCL 4 MG/2 ML VIAL IVPUSH (07:49)
[2023-06-22] MEDS: Multivitamin TABLET 1 TAB PO (07:49)
[2023-06-22] MEDS: Lidocaine 4 % Patch ADH..PATCH 1 PATCH TRANSDERMA (07:49)
--- NOTE | 2023-06-22 10:25 | P.DS_ITS ---
DS: Providers Provider Date of Service: 06/22/23 Date of admission: 06/16/23 18:00 Date of discharge: 06/22/23 Primary care physician: Alana Reyes DO Consults: 06/18/23 10:00 Consult to Gastroenterology Routine Consulting Provider: [facility] Reason for consultation: Abd pain/ch pancreatitis Has provider been notified: Yes Attending physician on discharge: Chana Scruggs Discharging clinician: Chana Scruggs DS: Diagnosis Discharge Diagnosis (1) Nausea & vomiting: Status: Acute (2) Abdominal pain: Status: Acute DS: Summary Hospital Course Hospital Course: 42-year-old female with history alcohol abuse, hypothyroidism, chronic pancreatitis, moderate persistent asthma presents to the ED earlier today for evaluation of severe epigastric pain radiating around the left side with intractable nausea and vomiting. She reports she was hospitalized from 05/29- 06/06 for acute pancreatitis and managed for alcohol withdrawal at [facility] in. She states she had been abstaining from alcohol before days ago had 2 shots of hard liquor. She awoke in the middle of the night last night with severe epigastric pain as well as nausea and vomiting. She has been unable to tolerate solids or fluids. She states she had thought she was constipated so had been taking milk of magnesia and had a single episode of diarrhea this morning without any recurrence. No fevers, chills, hematemesis, melena, hematochezia.. She denies any illicit drug use but does smoke marijuana and cigarettes occasionally. She states she does have an appointment at [facility] on 06/20 per the patient. On arrival, vital signs stable. There is a mild leukocytosis of 13.0. Renal function normal, electrolyte levels normal, hepatic function normal. Lipase 63. Urinalysis unremarkable. Ethyl alcohol level undetectable. CT abdomen/pelvis shows changes of chronic pancreatitis with calcifications in the head of the pancreas and dilatation of the main pancreatic duct but no evidence of acute pancreatitis. There is also apparent wall thickening of the transverse, left, sigmoid colon which may be due to under distension though difficult to exclude mild colitis. In the ED has received 10 mg Reglan, 4 mg IV morphine, 1 L IV NS, 5 mg Compazine, 25 mg Benadryl, 4 mg ondansetron, and IV ketorolac. Hospital course: 42-year-old female with history alcohol abuse, hypothyroidism, chronic pancreatitis, moderate persistent asthma to be observed for intractable nausea/vomiting with poor po intake-patient was started on PPIs, antiemetics, pain medication, hydration and subsequently CT abdomen was done intially and repeated did not show any acute process . Seen by GI and EGD was done-found to have esophagitis/bulbar duodenitis. Pathology sent during EGD-needs to be followed outpatient. With above supportive therapy patient seems to be improved will go home on PPI,tolerating diet. Patient was strongly advised to abstain from alcohol and marijuana. in addition ct abd :several small calcifications in the head of the pancreas with dilatation of pancreatic duct likely partially obstructed from this calculi. No peripancreatic fluid collection seen. After an outpatient MRCP. d/w with patient in detail upon discharge yesterday -need outpatient workup. plan: Continue omeprazole , follow-up GI pathology outpatient with GI. Strongly advised to abstain from alcohol and marijuana. Further management outpatient with PCP and GI. Above management discussed the patient still and she understand and in agreement with the above plan, time spent 50 [address]. addam: ct changes d/w Gi dr Mcqueen in detail -they may arrange outpatient . Time Spent with Patient Time attestation: Total time managing care of this patient today ____ minutes. Discharge coordination time: Greater than 30 minutes Quality: Safe Use of Opioids Does Pt have an Active Cancer Diagnosis on the Problem List?: No Quality: Stroke Does the patient have a stroke diagnosis?: No Physical Exam Vital Signs: Vital Signs: Last Vital Signs Temp 98.3 F 06/22/23 07:07 Pulse 67 06/22/23 07:45 Resp 16 06/22/23 07:45 BP 141/79 H 06/22/23 07:07 Pulse Ox 98 06/22/23 07:07 O2 Del Method Room Air 06/22/23 07:07 O2 Flow Rate 6 06/19/23 13:05 BMI result Body Mass Index 20.8 Appearance: Alert.? Oriented X3.? not in distress.? cvs: rrr, [id number] . res: clear to auscultation ,no rhonchii or wheezing abd: no rebound or guardin, nt, bs present. ext pulses present , no cyanosis . neuro: axo3 , nonfocal. DS: Data Data Completed and Pending Completed studies during hospitalization [Text1]: Pending at discharge 06/19/23 12:56 Surgical [PTH] Routine Pending studies at discharge: Pending at discharge 06/19/23 12:55 Surgical [PTH] Routine Labs on day of discharge: Laboratory Results - last 24 hr 06/22/23 05:00 Potassium 3.5 Imaging Chest x-ray: Radiologist's impression: ITS Impressions Abdomen/Pelvis CT 06/16/23 14:04 IMPRESSION: Changes of chronic pancreatitis with calcifications in the head of the pancreas dilatation of the main pancreatic duct. No evidence of acute pancreatitis. Small nonobstructing right renal stone. Apparent wall thickening of the transverse, left and sigmoid colon.. This may be due to underdistention. It is difficult to exclude mild colitis. Fleischner guidelines were followed. Abdomen/Pelvis CT 06/20/23 15:12 IMPRESSION: 1. No acute intra-abdominal process seen. 2. There are several small calcifications in the head of the pancreas with dilatation of pancreatic duct likely partially obstructed from this calculi. No peripancreatic fluid collection seen. After an outpatient MRCP. 3. Retroverted uterus with slightly enlarged fundus but no focal lesion seen. 4. Left ovarian 3.0 cm cyst. Fleischner guidelines were followed. Head CT 06/20/23 21:45 IMPRESSION: No acute intracranial abnormality including hemorrhage, mass effect, hydrocephalus, or acute territorial edematous infarction. Discharge Plan Discharge Anticipated Discharge Date/Time: 06/22/23 10:13 Patient Disposition: Home, Self-Care Discharge Diagnosis: abd pain possible possible alcoholic gastritis /esophagitis Referrals: Alana Fofana DO [Primary Care Provider] - 1 Week Mary Mcqueen MD [Physician] - 1 Week (follow up outpatient) Discharge Medications: New omeprazole 20 mg capsule,delayed release(DR/EC) 20 mg PO BID Qty: 60 0RF Continued acetaminophen 325 mg tablet 650 mg PO Q4H PRN (Reason: mild pain) levothyroxine 125 mcg tablet 125 mcg PO DAILY albuterol sulfate [Ventolin HFA] 90 mcg/actuation HFA aerosol inhaler 2 puff inhalation Q4H PRN (Reason: Wheezing) budesonide-formoterol [Symbicort] 80-4.5 mcg/actuation HFA aerosol inhaler 2 puff inhalation BID multivitamin with folic acid [Daily-Preston (with folic acid)] 400 mcg tablet 1 tab PO DAILY trazodone 50 mg tablet 50 mg PO BEDTIME PRN (Reason: Insomnia) ondansetron 4 mg tablet,disintegrating 4 mg PO Q8H PRN (Reason: Nausea) Qty: 10 0RF Discharge Orders: Discharge Order (Routine); Ordered 06/22/23 Ordered By: Chana Scruggs Diet: Advance to usual diet Activity on Discharge: As tolerated Stand Alone Forms: Patient Portal Discharge page, Work/School Release Care Plan Goals: 42-year-old female with history alcohol abuse, hypothyroidism, chronic pancreatitis, moderate persistent asthma to be observed for intractable nausea/vomiting with poor po intake-patient was started on PPIs, antiemetics, pain medication, hydration and subsequently CT abdomen was done intially and repeated did not show any acute process . Seen by GI and EGD was done-found to have esophagitis/bulbar duodenitis. Pathology sent during EGD-needs to be followed outpatient. With above supportive therapy patient seems to be improved will go home on PPI. Patient was strongly advised to abstain from alcohol and marijuana. Further management outpatient with PCP and GI. Health Concerns: As above. Plan of Treatment: As above. Assessment: As above. Discharge Date/Time: 06/22/23 14:27
--- NOTE | 2023-06-22 12:20 | MHC.CM.PN ---
PT TO DC HOME TODAY WITH NO NEW SERVICES PT TO ARRANGE TRANSPORT
== END 2023-06-22 14:27 | disposition home or self-care (01) ==
LOC: HO.ED 16:45 → HO.EDOVER 18:07 → HO.S3 18:42
PROVIDERS: Internal Medicine; Physician Assistant; Registered Nurse Emergency; Admitting Provider Physician Assistant; Emergency Provider Emergency Medicine; PCP Internal Medicine; Visit Provider Internal Medicine
PROC: 0DJ08ZZ Inspection of Upper Intestinal Tract, Via Natural or Artificial Opening Endoscopic (ICD-10-PCS; CPT 43235; principal; 2023-06-19 13:00)
DX: R10.13 Epigastric pain (principal); R11.2 Nausea with vomiting, unspecified; N20.0 Calculus of kidney; K86.1 Other chronic pancreatitis; E03.9 Hypothyroidism, unspecified; D72.829 Elevated white blood cell count, unspecified; J45.40 Moderate persistent asthma, uncomplicated; F10.90 Alcohol use, unspecified, uncomplicated; J98.11 Atelectasis; N83.202 Unspecified ovarian cyst, left side; Z79.899 Other long term (current) drug therapy
CPT/HCPCS: 43239; 36415; 70450; 74177; 80048; 80053; 80307; 81001; 83690; 83735; 84132; 84484; 84702; 85025; 85610; 88305; 93005; 94640; 96361; 96372; 96374; 96375; 96376; 99221; 99285; J1200; J1650; J1885; J2060; J2270; J2405; J2765; Q9967

== ENCOUNTER → 2023-06-16 18:00 | Outpatient (BNV) | payer SELFPAY | PROVIDERS: Admitting Provider Physician Assistant; Emergency Provider Emergency Medicine; PCP Internal Medicine; Visit Provider Internal Medicine | DX: R10.9 Unspecified abdominal pain (principal); R11.2 Nausea with vomiting, unspecified; K20.90 Esophagitis, unspecified without bleeding; K29.80 Duodenitis without bleeding | CPT/HCPCS: 43239; 99222 ==

== ENCOUNTER → 2023-06-16 18:00 | Outpatient (BNV) | payer SELFPAY | PROVIDERS: Admitting Provider Physician Assistant; Emergency Provider Emergency Medicine; Visit Provider Physician Assistant | DX: R11.2 Nausea with vomiting, unspecified (principal); R10.9 Unspecified abdominal pain | CPT/HCPCS: 99223; 99232; 99239 ==